=== PATIENT | female | born 1960 | race Caucasian/White ===

== ENCOUNTER 2021-04-17 10:50 | Emergency (ER) | payer BC, SELFPAY ==
[2021-04-17 11:02] VITALS: BP 136/55; PULSE 91; RESP 18; TEMP 36.6; O2SAT 99
--- NOTE | 2021-04-17 11:21 | ED.URI ---
HPI - URI/Sore Throat General Chief Complaint: Upper Respiratory Infection Stated Complaint: sorethroat,fever Time Seen by Provider: 04/17/21 11:24 Source: patient and RN notes reviewed Mode of arrival: ambulatory Limitations: no limitations History of Present Illness HPI Narrative: 61-year-old female presents to the [facility] with complaints of a sore throat and fever since yesterday. Has taken Sudafed and Tylenol which has helped with her symptoms. States her fever yesterday was 100.6 Patient states she started feeling unwell Saturday night. MD elicited complaint: fever and sore throat Related Data Home Medications Medication Instructions Recorded Confirmed hydrocortisone 5 mg PO DAILY 04/17/21 04/17/21 levothyroxine [Synthroid] 25 mcg PO DAILY 04/17/21 04/17/21 Allergies Allergy/AdvReac Type Severity Reaction Status Date / Time No Known Allergies Allergy Unknown Verified 04/17/21 11:34 Review of Systems Review of Systems: All systems reviewed & are unremarkable except as noted in HPI and below Constitutional: Constitutional: Reports as per HPI and Reports fever(s) (100.8) Eyes: Eyes: Reports no additional eye complaints ENT: Reports as per HPI, Reports nasal congestion and Reports sore throat Comments: Ear pressure, rhinorrhea Cardiovascular: Cardiovascular: Reports no additional cardiovascular complaints and Denies chest pain Respiratory: Respiratory: Reports no additional respiratory complaints, Denies cough, Denies dyspnea and Denies wheezing Gastrointestinal: Gastrointestinal: Reports no additional gastrointestinal complaints, Denies abdominal pain, Denies nausea and Denies vomiting Musculoskeletal: Musculoskeletal: Reports no additional musculoskeletal complaints Integumentary/Breasts: Skin/Breast: Reports system reviewed and no additional complaints, except as docu Neurologic: Reports system reviewed and no additional complaints, except as documented Psychiatric: Psychiatric: Reports no additional psychiatric complaints Allergic/Immunologic: Allergic/Immunologic: Reports no additional allergic/immunologic complaints [facility] Past Medical History Medical History (Updated 04/17/21 @ 18:23 by Nely Gallo) Thyroid disease Family History Family History Mother Family history of hypercholesterolemia Family history of cardiac disorder Father Family history of hypercholesterolemia Hypertension Family history of cardiovascular disease Family history of chronic obstructive pulmonary disease Other Family history of Parkinson's disease Social History Social History (Reviewed 04/17/21 @ 18:23 by Nely Sims Smoking status: Never smoker Alcohol intake: never Comments At the time of my signature, I reviewed and agree with the nursing past medical, surgical, social, and family history. There is no relevant family history pertinent to the patient complaint. Exam Const: General: healthy appearing, no acute distress and alert Nutritional Appearance: well nourished Orientation/consciousness: patient oriented x3 Limitations: no limitations HENMT: Head: normal to inspection Ears: external ears normal, TM's normal bilaterally and EAC's normal General nose exam: Normal nares present, Normal nasal mucous membranes and turbinates present and No nasal discharge present Throat: uvula midline and postnasal drainage Eyes: Conjunctivae: conjunctivae normal Pupils: Equal, round and reactive pupils present Neck: Neck: normal visual inspection, no lymphadenopathy and no meningeal signs Chest: Chest palpation & inspection: normal inspection of the chest Resp: Effort & Inspection: normal respiratory effort Auscultation: clear to auscultation bilaterally Cardio: Rate: regular rate Rhythm: regular rhythm Back/Spine/Pelvis: Back: no CVA tenderness Skin: General skin exam: normal color Rashes: no rashes Wounds: no wounds Neuro: Gen
== END 2021-04-17 11:49 | disposition home or self-care (01) ==
PROVIDERS: Emergency Provider Nurse Practitioner; PCP Family Medicine
DX: R09.82 Postnasal drip (principal); J06.9 Acute upper respiratory infection, unspecified; J02.9 Acute pharyngitis, unspecified; Z20.822 Contact with and (suspected) exposure to COVID-19; E03.9 Hypothyroidism, unspecified
CPT/HCPCS: 87081; 87804; 87880; 99213; G0463

== ENCOUNTER 2021-10-03 09:26 | Outpatient (CLI) | payer BC, SELFPAY ==
--- NOTE | ~2021-10-03 | MM_ITS ---
EXAMINATION: MM screening [facility] BI w el HISTORY: Screening mammogram TECHNIQUE: Craniocaudal and mediolateral oblique 3-D tomosynthesis images were obtained and synthetic 2-D images were generated. CAD analysis was submitted and interpreted. COMPARISON: 10/17/2018, 03/26/2017 BREAST PARENCHYMAL COMPOSITION: There are scattered areas of fibroglandular density. FINDINGS: There is no suspicious mass, calcification, or architectural distortion to suggest malignan cy in either breast. There has been no suspicious interval change. IMPRESSION: 1. No mammographic evidence of malignancy. 2. Recommend routine screening mammography in one year. BI-RADS Category 1: Negative Reviewed, dictated and finalized at location A.
== END 2021-10-03 09:27 | disposition home or self-care (01) ==
LOC: ANHIMG 09:29
PROVIDERS: PCP Family Medicine; Visit Provider Family Medicine
DX: Z12.31 Encounter for screening mammogram for malignant neoplasm of breast (principal)
CPT/HCPCS: 77063; 77067

== ENCOUNTER 2021-10-10 12:43 | Outpatient (CLI) | payer BC, SELFPAY ==
--- NOTE | ~2021-10-10 | DEXA_ITS ---
Bone Density Report Name: ELIZABETH FRIEDMAN Age: 61 Sex: Female Ethnicity: White Date of : 1960 Indication: postmenopausal; screening for osteoporosis; prior fracture; hysterectomy; Referring Provider: UNKNOWN, UNKNOWN Study: Bone densitometry was performed. Exam Date: October 10, 2021 Accession number: [id number] Bone Density: Region BMD T-score Z-score Classification AP Spine(L1-L4) 0.904 -1.3 0.2 Osteopenia Femoral Neck (Left) 0.715 -1.2 0.1 Osteopenia Total Hip (Left) 0.778 -1.3 -0.4 Osteopenia Femoral Neck (Right) 0.749 -0.9 0.4 Normal Total Hip (Right) 0.856 -0.7 0.3 Normal Total Hip Mean 0.817 -1.0 -0.1 Normal World Health Organization criteria for BMD impression classify patients as: Normal (T-score at or above -1.0), Osteopenia (T-score between -1.0 and -2.5), or Osteoporosis (T-score at or below -2.5). 10-year Fracture Risk(1): Major Osteoporotic Fracture 13% Hip Fracture 0.9% Reported Risk Factors: [place] (), Neck BMD=0.715, BMI=26.8, previous fracture (1) FRAX(R) Version 3.08. Fracture probability calculated for an untreated patient. Fracture probability may be lower if the patient has received treatment. Clinical Information Provided by Patient: Has had a low trauma fracture Has used the following medications: Calcium Has the following medical conditions: Hysterectomy Patient maximum height was 60 Menopause Age: 46 No regular weight bearing exercise Drinks caffeinated beverages Onset of menses at age 13 Number of children 4 Impression: The patient has low bone mass, based on the Total Spine T-score. The patient has an estimated ten-year risk of hip fracture of 0.9% and an estimated ten-year risk of major fracture of 13%, based on the WHO FRAX algorithm. The patient has risk factors, including: previous fracture. Discussion: BONE DENSITY IS LOW AT ONE OR MORE SKELETAL SITES. This patient's lowest T-score is low at one or more skeletal sites. It meets the World Health Organization's (WHO) criteria for ?low bone mass? (T-score between -1.0 and -2.5). The patient's 10-year risk of fracture as calculated by FRAX is less than the threshold where pharmacological therapy is recommended by the National Osteoporosis Foundation (NOF). However, all treatment decisions require clinical judgment and consideration of individual patient factors, including patient preferences, comorbidities, previous drug use, risk factors not captured in the FRAX model (e.g., frailty, falls, vitamin D deficiency, increased bone turnover, interval significant decline in bone density) and possible under or overestimation of fracture risk by FRAX. The patient should follow a healthful lifestyle (good nutrition with adequate calcium and vitamin D, and appropriate weight-bearing exercise).
== END 2021-10-10 12:44 | disposition home or self-care (01) ==
PROVIDERS: PCP Family Medicine
DX: E27.40 Unspecified adrenocortical insufficiency (principal); N95.0 Postmenopausal bleeding; Z78.0 Asymptomatic menopausal state; M85.88 Other specified disorders of bone density and structure, other site; M85.852 Other specified disorders of bone density and structure, left thigh
CPT/HCPCS: 77080

== ENCOUNTER 2021-12-14 10:42 | Outpatient (CLI) | payer BC, SELFPAY ==
--- NOTE | ~2021-12-14 | US_ITS ---
US thyroid INDICATION: Hypothyroidism. Thyroid goiter. TECHNIQUE: Real-time sonographic images of the thyroid gland were obtained. COMPARISON: No prior studies for comparison. FINDINGS: The right thyroid lobe measures 3 x 1 x 1.1 cm. The left thyroid lobe measures 3.2 x 1.4 x 1 cm. There is normal echotexture and echogenicity throughout the thyroid gland. There is a benign 5 mm cyst of the left thyroid gland.. Normal vascular flow is present. IMPRESSION: 1. Benign cyst of the left thyroid measuring 5 mm. Otherwise, unremarkable thyroid ultrasound. Reviewed, dictated and finalized at location B. IMPRESSION: 1. Benign cyst of the left thyroid measuring 5 mm. Otherwise, unremarkable thy roid ultrasound.
== END 2021-12-14 10:43 | disposition home or self-care (01) ==
PROVIDERS: PCP Hospitalist
DX: E03.9 Hypothyroidism, unspecified (principal); E04.1 Nontoxic single thyroid nodule
CPT/HCPCS: 76536

== ENCOUNTER 2023-08-23 10:15 | Emergency (ER) | payer BC, SELFPAY ==
[2023-08-23 10:34] VITALS: BP 136/63; PULSE 93; RESP 16; TEMP 36.6; O2SAT 99
--- NOTE | 2023-08-23 10:52 | ED.URI ---
HPI - URI/Sore Throat General Chief Complaint: Upper Respiratory Infection Stated Complaint: Sore Throat History of Present Illness HPI Narrative: 63 y/o female presented for c/o sore throat, onset 2 days. Endorses exposure to strep. Denies cough, sob, wheezing, n/v/d/f/c. Also reports right eye irritation, states it feels like she woke with something in the eye. Denies eye pain, drainage, swelling, photophobia, vision changes, or headache. Used eye drops but it returned. Related Data Home Medications Medication Instructions Recorded Confirmed hydrocortisone 5 mg tablet 5 mg PO DAILY 04/17/21 04/17/21 levothyroxine 25 mcg tablet 25 mcg PO DAILY 04/17/21 04/17/21 (Synthroid) liothyronine 5 mcg tablet mcg 08/23/23 Allergies Allergy/AdvReac Type Severity Reaction Status Date / Time No Known Allergies Allergy Unknown Verified 08/23/23 10:43 Review of Systems Review of Systems: CONSTITUTIONAL: Denies body aches, fever, chills, or sweats. EYES: Reports FB sensation right eye, Denies visual changes, redness, or discharge. ENT: reports sore throat Denies rhinorrhea, congestion, or otalgia. CARDIOVASCULAR: Denies chest pain, palpitations, or edema. RESPIRATORY: Denies dyspnea. GASTROINTESTINAL: Denies abdominal pain, nausea, vomiting, or diarrhea. SKIN: Denies rash, itching, or wounds. MUSCULOSKELETAL: Denies back pain, joint pain, or myalgia. [facility] Past Medical History Medical History Thyroid disease Family History Family History Mother Family history of hypercholesterolemia Family history of cardiac disorder Father Family history of hypercholesterolemia Hypertension Family history of cardiovascular disease Family history of chronic obstructive pulmonary disease Other Family history of Parkinson's disease Social History Social History Smoking status: Never smoker Alcohol intake: never Exam Narrative: GENERAL: well-appearing, no acute distress. EYES: conjunctivae clear, no FB, no drainage or swelling ENT: Mucous membranes moist. TMs pearly powell with normal light reflex bilaterally; no tragal tenderness. Oropharynx not erythematous without lesions. Tonsils not enlarged and without exudate. No drooling, no hoarseness, no trismus, uvula midline. No tripod positioning, hot potato voice, or soft palate swelling. NECK: Supple. No lymphadenopathy CHEST: Clear to auscultation, breath sounds equal. No respiratory distress, speaks in full sentences. HEART: Regular rate and rhythm. No murmur heard. SKIN: Warm, dry, no rash. NEURO: Alert and oriented x3. Course Course Emergency Course: Patient is aware of diagnosis, understands and agrees to treatment plan. Anticipatory guidance given. Patient agrees to follow-up as directed and is aware of reasons to seek care at the emergency department. Portions of this record may have been created with voice recognition software Level of Care: Express Care Visit Vital Signs Vital signs: Vital Signs Temperature 97.9 F 08/23/23 10:34 Pulse Rate 93 08/23/23 10:34 Respiratory Rate 16 08/23/23 10:34 Blood Pressure 136/63 08/23/23 10:34 Pulse Oximetry 99 08/23/23 10:34 Oxygen Delivery Room Air 08/23/23 10:34 Temperature 97.9 F 08/23/23 10:34 Pulse Rate 93 08/23/23 10:34 Respiratory Rate 16 08/23/23 10:34 Blood Pressure 136/63 08/23/23 10:34 Pulse Oximetry 99 08/23/23 10:34 Oxygen Delivery Room Air 08/23/23 10:34 Procedures FB Removal Eye Foreign Body #1: Foreign Body Removal Date: 08/23/23 Location: eye (R) Foreign body: other (none) Evidence of corneal penetration: No Technique: irrigation (eye wash, approx 20mL) Procedure performed under: other (direct visualization) Patient manuel
[2023-08-23] MEDS: DACRIOSE EYE IRRIGATION 118 ML BOTTLE RIGHT EYE (11:02)
== END 2023-08-23 11:13 | disposition home or self-care (01) ==
PROVIDERS: Emergency Provider Nurse Practitioner Family; PCP Hospitalist
DX: J02.9 Acute pharyngitis, unspecified (principal); H57.11 Ocular pain, right eye; E07.9 Disorder of thyroid, unspecified
CPT/HCPCS: 87081; 87880; 99213; A9270; G0463

== ENCOUNTER 2024-05-19 14:32 | Outpatient (CLI) | payer BC, SELFPAY ==
--- NOTE | ~2024-05-19 | MM_ITS ---
EXAMINATION: MM screening [facility] BI w el HISTORY: Screening TECHNIQUE: Craniocaudal and mediolateral oblique 3-D tomosynthesis images were obtained and synthetic 2-D images were generated. CAD analysis was submitted and interpreted. COMPARISON: Comparison to multiple prior studies sequentially, with oldest reviewed study dated 11/18. BREAST PARENCHYMAL COMPOSITION: Not dense: There are scattered areas of fibroglandular density. FINDINGS: There is no evidence of suspicious mass, calcification, or architectural distortion to sugg est malignancy in either breast. There has been no suspicious interval change. IMPRESSION: 1. No mammographic evidence of malignancy. 2. Recommend routine screening mammography in one year. BI-RADS Category 1: Negative Reviewed, dictated and finalized at location A. 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
--- NOTE | ~2024-05-19 | DEXA_ITS ---
Bone Density Report Name: ELIZABETH FRIEDMAN Age: 64 Sex: Female Ethnicity: White Date of : 1960 Indication: osteopenia; history of glucocorticoids; hysterectomy; Referring Provider: UNKNOWN, UNKNOWN Study: Bone densitometry was performed. Exam Date: May 19, 2024 Accession number: [id number] Bone Density: Region BMD T-score Z-score Classification AP Spine(L1-L4) 0.888 -1.4 0.2 Osteopenia Femoral Neck (Left) 0.686 -1.5 0.0 Osteopenia Total Hip (Left) 0.826 -1.0 0.2 Normal Femoral Neck (Right) 0.708 -1.3 0.2 Osteopenia Total Hip (Right) 0.814 -1.1 0.1 Osteopenia Total Hip Mean 0.820 -1.1 0.2 Osteopenia World Health Organization criteria for BMD impression classify patients as: Normal (T-score at or above -1.0), Osteopenia (T-score between -1.0 and -2.5), or Osteoporosis (T-score at or below -2.5). 10-year Fracture Risk(1): Major Osteoporotic Fracture 13% Hip Fracture 1.4% Reported Risk Factors: [place] (), Neck BMD=0.686, BMI=25.2, glucocorticoids (1) FRAX(R) Version 3.08. Fracture probability calculated for an untreated patient. Fracture probability may be lower if the patient has received treatment. Previous Exams: Region Exam Age BMD T-score BMD Change BMD Change Date g/cm2 vs Baseline vs Previous AP Spine (L1-L4) 05/19/2024 64 0.888 -1.4 -0.098 (-10.0% -0.016 (-1.8%) 10/10/2021 61 0.904 -1.3 -0.082 (-8.3%) -0.082 (-8.3%) 03/26/2017 57 0.987 -0.5 Total Hip(Left) 05/19/2024 64 0.826 -1.0 -0.024 (-2.8%) 0.047 (6.1%)# 10/10/2021 61 0.778 -1.3 -0.071 (-8.4%) -0.071 (-8.4%) 03/26/2017 57 0.849 -0.8 Total Hip(Right) 05/19/2024 64 0.814 -1.1 -0.077 (-8.6%) -0.042 (-5.0%) 10/10/2021 61 0.856 -0.7 -0.034 (-3.9%) -0.034 (-3.9%) 03/26/2017 57 0.890 -0.4 *Denotes significance at 95% confidence level, LSC for AP Spine = 0.022 g/cm2, LSC for Total Hip = 0.027 g/cm2 # Denotes dissimilar scan types or analysis methods Clinical Information Provided by Patient: Has taken Glucocorticoids Has used the following medications: Vitamin D, Calcium Has the following medical conditions: Hysterectomy Patient maximum height was 61 Menopause Age: 46 No regular weight bearing exercise Drinks caffeinated beverages Onset of menses at age 13 Number of children 4 Impression: The patient has low bone mass, based on the Left Femoral Neck T-score. The patient has an estimated ten-year risk of hip fracture of 1.4% and an estimated ten-year risk of major fracture of 13%, based on the WHO FRAX algorithm. The patient has risk factors, including: history of glucocorticoid therapy. No significant bone loss was observed. Discussion: BONE DENSITY IS LOW AT ONE OR MORE SKELETAL SITES. This patient's lowest T-score is low at one or more skeletal sites. It meets the World Health Organization's (WHO) criteria for ?low bone mass? (T-score between -1.0 and -2.5). The patient's 10-year risk of fracture as calculated by FRAX is less than the threshold where pharmacological therapy is recommended by the National Osteoporosis Foundation (NOF). However, all treatment decisions require clinical judgment and consideration of individual patient factors, including patient preferences, comorbidities, previous drug use, risk factors not captured in the FRAX model (e.g., frailty, falls, vitamin D deficiency, increased bone turnover, interval significant decline in bone density) and possible under or overestimation of fracture risk by FRAX. The patient should follow a healthful lifestyle (good nutrition with adequate calcium and vitamin D, and appropriate weight-bearing exercise). Follow-Up: Consider repeating this study in 2 to 3 years to reassess this patient's status, or sooner if there is some new clinical indication. Reported by: CASSIDY on 05/19/2024 3:28:00 PM. Reviewed, dictated and finalized at location ASerg [facility]ITAL[facility]
== END 2024-05-19 14:33 | disposition home or self-care (01) ==
PROVIDERS: PCP Family Medicine Sports Medicine
DX: Z12.31 Encounter for screening mammogram for malignant neoplasm of breast (principal); Z78.0 Asymptomatic menopausal state; M85.88 Other specified disorders of bone density and structure, other site; M85.852 Other specified disorders of bone density and structure, left thigh; M85.851 Other specified disorders of bone density and structure, right thigh
CPT/HCPCS: 77063; 77067; 77080

== ENCOUNTER 2024-06-12 10:18 | Emergency (ER) | payer BC, SELFPAY ==
--- NOTE | ~2024-06-12 | XR_ITS ---
EXAMINATION: XR hip RT min 2V, XR femur RT min 2V, XR tibia fibula RT 2V DATE: 06/12/2024 11:22 INDICATION: Right lower limb pain from the hip through the calf post fall TECHNIQUE: 1. Anteroposterior and frog-leg lateral views of the right hip were obtained. 2. AP and lateral views of the right femur were obtained on overlapping proximal and distal images. 3. AP and lateral views of the right tibia and fibula were obtained. COMPARISON: None. FINDINGS: Bone alignment is normal from the right hemipelvis through the right lower leg. No fracture. Right hi p and ankle joint spaces appears relatively preserved. Mild osteoarthritis at the right sacroiliac talita int. Mild osteoarthritis of the medial compartment of the right knee with subarticular cystlike vora e underlying the shoulder the intercondylar eminence. Additional patellofemoral osteoarthritis with s mall marginal osteophyte the cephalad patella. Small amount of likely enthesopathic heterotopic ossif ication along the greater trochanter. Soft tissues are unremarkable with no right knee or ankle joint effusion. IMPRESSION: 1. Mild degenerative skeletal changes with no acute osseous abnormality at the visualized right leg a nd hemipelvis. Reviewed, dictated and finalized at location A. N CLEANER IMPRESSION: 1. Mild degenerative skeletal changes with no acute osseous abnormality at the visualized right leg and hemipelvis. IMPRESSION: 1. Mild degenerative skeletal changes with no acute osseous abnormality at the visualized right leg and hemipelvis.
--- NOTE | 2024-06-12 10:19 | ED.LOWEXIN ---
HPI - Extremity Injury (Lower) General Chief Complaint: Extremity Injury, Lower Stated Complaint: RT Hip / Leg Pain Time Seen by Provider: 06/12/24 10:19 Source: patient Mode of arrival: ambulatory Limitations: no limitations History of Present Illness HPI Narrative: Marsha is a 64-year-old female patient presenting to the clinic today with complaints of right hip/leg pain x2 days. She reports she started having sciatica like pain to the posterior hip radiating across the lateral hip and down the anterior left leg. Reports she was bending forward over the past few days near her fathers bedside as her father on Saturday. States her low right leg gave out on her and she fell landing on the posterior hip on Saturday. Has a bruise to the posterior hip. States she has been taking ibuprofen and Tylenol without relief of pain. Pain is worse with movement, standing straight up, and bearing weight. Related Data Home Medications ?Medication ?Instructions ?Recorded ?Confirmed ?Last Taken ?Type hydrocortisone 5 mg tablet 5 mg PO DAILY 04/17/21 04/17/21 Unknown History levothyroxine 25 mcg tablet 25 mcg PO DAILY 04/17/21 04/17/21 Unknown History (Synthroid) liothyronine 5 mcg tablet mcg 08/23/23 Unknown History Allergies Allergy/AdvReac Type Severity Reaction Status Date / Time No Known Allergies Allergy Unknown Verified 06/12/24 10:45 Review of Systems Review of Systems: Pertinent positives per HPI. Patient denies any fever, chills, rash, headache, visual changes, dizziness, cough, shortness of breath, chest pain, palpitations, nausea, vomiting, diarrhea, constipation, abdominal pain, or any urinary issues. [facility] Past Medical History Medical History Thyroid disease Family History Family History Mother Family history of hypercholesterolemia Family history of cardiac disorder Father Family history of hypercholesterolemia Hypertension Family history of cardiovascular disease Family history of chronic obstructive pulmonary disease Other Family history of Parkinson's disease Social History Social History Smoking status: Never smoker Alcohol intake: never Comments At the time of my signature, I reviewed and agree with the nursing past medical, surgical, social, and family history. There is no relevant family history pertinent to the patient complaint. Exam Narrative: General: Well-developed, well nourished, in no apparent distress Head: Normocephalic, atraumatic. Cardio: Regular rate and rhythm, s1 and s2 normal, no murmur appreciated. Resp: Clear to auscultation bilaterally, no rhonchi, rales, wheezing or rubs. Musculoskeletal: No deformity, old bruising noted to the right posterior hip area the size approximately of a baseball,tender to palpation over the posterior hip, anterior proximal thigh, an anterior proximal tib-fib, grossly normal range of motion, muscle strength strong and equal, peripheral pulse strong, no edema, no cyanosis, walking with a wheeled walker Course Course Emergency Course: Portions of this record may have been created with voice recognition software. Level of Care: Express Care Visit Vital Signs Vital signs: Vital Signs Temperature 36.6 C 06/12/24 10:36 Pulse Rate 99 06/12/24 10:36 Respiratory Rate 16 06/12/24 10:36 Blood Pressure 146/63 H 06/12/24 10:36 Pulse Oximetry 06/12/24 10:36 Oxygen Delivery Room Air 06/12/24 10:36 Temperature 36.6 C 06/12/24 10:36 Pulse Rate 99 06/12/24 10:36 Respiratory Rate 16 06/12/24 10:36 Blood Pressure 146/63 H 06/12/24 10:36 Pulse Oximetry 99 06/12/24 10:36 Oxygen Delivery Room Air 06/12/24 10:36 Vital signs reviewed MDM - Extremity Injury (Lower) MDM Narrative Medical decision making narrative: At the time of visit patient is resting comfortably on the exam table. Patient appears to be nontoxic. Diagnostics: X-ray of the right hip, right femur, and right tib-fib performed. All x-rays are negative for any fracture or malalignment. Does show some mild degenerative changes. Plan: I suspect patient has right posterior hip pain with sciatica. Prescription for Medrol Dosepak and tramadol was sent to the pharmacy. Supportive measures were discussed with the patient and they voiced understanding discharge instructions and agrees to treatment plan. Return precautions reviewed Differential Diagnosis Differential diagnosis: Likely other (Sciatica, low back pain, hip pain, SI joint dysfunction, fall, contusion, hip fracture, femur fracture, tibia fracture) Imaging Data Radiologist's impression: ITS Impressions Femur X-Ray 06/12/24 11:36 IMPRESSION: 1. Mild degenerative skeletal changes with no acute osseous abnormality at the visualized right leg and hemipelvis. Hip X-Ray 06/12/24 11:36 IMPRESSION: 1. Mild degenerative skeletal changes with no acute osseous abnormality at the visualized right leg and hemipelvis. Tibia/Fibula X-Ray 06/12/24 11:36 IMPRESSION: 1. Mild degenerative skeletal changes with no acute osseous abnormality at the visualized right leg and hemipelvis. Discharge Plan Discharge Clinical Impression: Posterior pain of right hip, Pain in femur Acute leg pain Qualifiers: Laterality: right Qualified Code(s): M79.604 - Pain in right leg Sciatica Qualifiers: Laterality: right Qualified Code(s): M54.31 - Sciatica, right side Contusion of hip Qualifiers: Encounter type: initial encounter Laterality: right Qualified Code(s): S70.01XA - Contusion of right hip, initial encounter Patient Disposition: Home, Self-Care Condition: Stable Instructions: Antibiotic Form, Sciatica (ED), Contusion in Adults (ED), Hip Pain (ED), Leg Pain (ED) Additional Instructions: X-rays negative for any fracture or malalignment. Shows mild degenerative skeletal changes with no acute osseous abnormality Take any prescription medication only as prescribed-Medrol Dosepak and tramadol May use heat or ice to the affected area Consider massage or chiropractor adjustment if this was discussed with provider May use blue emu, lidocaine patches, or asper cream to affected area- do not apply heat or ice directly over cream- can cause burn. Follow up with your PCP in 3-5 days if symptom persist. Patient Language: Belarusian Prescriptions: New tramadol 50 mg tablet 50 mg PO Q6H PRN (Reason: pain) 3 Days Qty: 12 0RF methylprednisolone [Medrol (Eric)] 4 mg tablets,dose pack See Rx Instructions PO .COMPLEX Qty: 21 0RF Rx Instructions: orally per package directions No Action liothyronine 5 mcg tablet hydrocortisone 5 mg tablet 5 mg PO DAILY levothyroxine [Synthroid] 25 mcg tablet 25 mcg PO DAILY Follow-up/Referrals: UNKNOWN,DOCTOR [Non-Staff] - Time of Disposition: 11:50 [facility] NIHSS nursing documentation: reviewed/agree
--- OUTSIDE RECORDS SUMMARY | 2024-06-12 10:29 | XMS_ITS | Referral Summary ---
Author Organization [address] Address [address] [place] [address] Care Team Providers Care Learning Coach Name Role Phone Jammie Campos MD Primary Care Provider Erin Ovalles MD Unavailable [phone] Encounters Date Type Department Care Team Description 05/08/2024 Telephone [facility] of [address] [address] Ilia Contreras MD 03/23/[address] [facility] Diabetes and Endocrinology [address] [place] [phone] Ilia Contreras MD 03/23/2024 8:30 AM SENIOR NET SOFTWARE ENGINEER Office Visit [facility] Diabetes and Endocrinology [address] [place] [phone] Ilia Contreras MD Adrenal insufficiency (HCC) (Primary Dx); Acquired hypothyroidism; IGT (impaired glucose tolerance); Vitamin D deficiency from Last 3 Months Allergies No known active allergies Medications estradioL (Estrace) 0.01 % (0.1 mg/gram) vaginal creamIndications:A trophic vaginitis Insert 2 g into the vagina daily For 1-2 weeks, then try to gradually decrease to 2-3x/week 42.5 g 3 09/20/19 Active Additional Information Patient not taking.Reported on 03/23/2024 Synthroid 88 mcg tabletIndications: Acquired hypothyroidism Take 1 tablet (88 mcg total) by mouth daily 90 tablet 3 03/23/20 025 Active miscellaneous medical [place] [facility] [place]ronine slow release oral 11 mcg daily in am and 7.5 mcg daily at 12 pm Active hydrocortisone (CORTEF) 5 mg tabletIndications: Adrenal insufficiency (HCC) Take 8 tablets (40 mg total) by mouth daily 720 tablet 3 05/08/19 026 Active Active Problems Problem Noted Date Diagnosed Date Adrenal insufficiency 09/20/2023 Assessment & Plan (03/23/2024 9:15 AM SENIOR NET SOFTWARE ENGINEER): Chronic, stable Patient hemodynamically stable Patient asymptomatic Check electrolyte panel Continue current dose of hydrocortisone ( patient takes a total of 30 mg daily ) Patient understands sick day rules Wears medical alert bracelet Assessment & Plan (09/20/2023 1:36 PM CDT): Chronic. Remains on hydrocortisone. She is aware about use of stress dose steroids. No signs of decompensation. She will continue hydrocortisone at current dose. She wishes to transition to [facility] Endocrinology so new referral was provided IGT (impaired glucose tolerance) 09/20/2023 Assessment & Plan (03/23/2024 9:15 AM SENIOR NET SOFTWARE ENGINEER): Check hemoglobin A1c Assessment & Plan (09/20/2023 1:37 PM CDT): Noted previously. Her fructosamine levels have been monitored by Endocrinology. She has not currently on any treatment. Encouraged healthy diet and lifestyle Atrophic vaginitis 09/20/2023 Assessment & Plan (09/20/2023 1:37 PM CDT): Chronic. Uses estradiol vaginal cream. Discussed appropriate use. Can be used daily for 1-2 weeks but then should gradually try to wean to once or twice week for maintenance long-term. Paresthesia 09/20/2023 Assessment & Plan (09/20/2023 1:37 PM CDT): Patient with very mild paresthesias at times in bilateral hands and feet. Somewhat nonspecific. Could have very mild component of carpal tunnel syndrome based on modified Phalen's. Her recent thyroid levels were acceptable. Her recent B12 and folate were also normal. We will monitor symptoms. If it continues to worsen then I would consider getting nerve conduction study test to further evaluate. Ganglion of right wrist 09/20/2023 Assessment & Plan (09/20/2023 1:38 PM CDT): Discussed diagnosis. As relatively asymptomatic we will just monitor for now. If struggles we can always attempt to aspirate but has high recurrence rate. Struggles long-term then can refer to orthopedic surgery for surgical consultation Annual physical exam 11/23/2021 Assessment & Plan (11/23/2021 12:51 PM CDT): Never smoker PAP: s/p hysterectomy Mammo UTD Colonoscopy UTD BP wnl PHQ Screening PHQ-2 Total Score (If total score is 3 or more points, staff should administer the PHQ-9): 0 Body mass index is 27.17 kg/m . Discussed diet and exercise Discussed skin cancer prevention and screening: referral to lay out machine operator Check labs Vaccinations UTD Acquired hypothyroidism 12/20/2015 Overview (08/02/2016): Hypothyroidism (acquired) Assessment & Plan (03/23/2024 9:14 AM SENIOR NET SOFTWARE ENGINEER): Chronic, unknown status Patient currently on Synthroid 88 mcg oral daily and slow-release liothyronine 11 mcg in a.m. and 7.5 mcg at noon Continue current thyroid medication Recheck thyroid labs soon Assessment & Plan (09/20/2023 1:35 PM CDT): Chronic. Was biochemically euthyroid on recent thyroid labs. She will continue on Synthroid and Cytomel. We did discuss that if thyroid levels are at arrange it could increase the risk of some nerve irritation symptoms Chronic fatigue syndrome 12/20/2015 Overview (08/02/2016): Chronic fatigue Thyroid nodule 12/20/2015 Overview (08/02/2016): Right thyroid nodule Resolved Problems Problem Noted Date Diagnosed Date Resolved Date Closed fracture of base of f ifth metatarsal bone of left foot at metaphyseal-diaphyseal junction 11/08/2016 09/20/2023 Closed fracture of distal en d of left fibula with delayed healing 11/08/2016 09/20/2023 Fracture follow-up 11/08/2016 4 Closed left fibular fracture 10/16/2016 09/20/2023 Closed nondisplaced fracture of fifth metatarsal bone of left foot 10/16/2016 09/20/2023 Immunizations Name Administration Dates Next Due Influenza, Quadrivalent, Kaylyn l Culture-based MDCK, Preservative Free, Antibiotic Free, Intramuscular 05/26/2023,02/27/2022,01/19/2017 Influenza, Quadrivalent, Spl it, Preservative Free, Intramuscular 02/28/2021,02/01/2020,02/13/2019,02/05 Influenza, Trivalent, IM (MDV) 04/01/2014 MMR 02/13/2019 Pneumococcal Polysaccharide PPV23 02/01/2020 RSV, Bivalent, Protein Subun it Rsvpref, Diluent (Abrysvo) 05/26/2023 Tdap 01/19/2017 ZOSTER Recombinant 10/19/2018,06/15/2018 Social History Tobacco Use Types Packs/Day Years Used Date Smoking Tobacco: Never Cigarettes Smokeless Tobacco: Never Tobacco Cessation:Counseling Given: Not Answered Alcohol Use Standard Drinks/Week Comments No 0 (1 standard drink = 0.6 oz pur e alcohol) AUDIT-C Answer Date Recorded Q1: How often do you have a drink containing alcohol? Never 09/20/2023 Q2: How many drinks containi ng alcohol do you have on a typical day when you are drinking? Patient does not drink Q3: How often do you have si x or more drinks on one occasion? Never 09/20/2023 PHQ-2 Answer Date Recorded PHQ-2 Total Score (If total score is 3 or more points, staff should administer the PHQ-9) 0 09/20/2023 Comments No Sex and Gender Information Value Date Recorded Sex Assigned at Not on file Legal Sex Female 5:59 AM SENIOR NET SOFTWARE ENGINEER Gender Identity Not on file Sexual Orientation Not on file Last Filed Vital Signs Vital Sign Reading Time Taken Comments Blood Pressure 122/82 03/23/2024 8:30 AM SENIOR NET SOFTWARE ENGINEER Pulse 90 03/23/2024 8:30 AM SENIOR NET SOFTWARE ENGINEER Temperature 36.9 C (98.4 F) 07/12/2022 1:06 PM CDT Respiratory Rate 18 09/20/2023 10:31 AM CDT Oxygen Saturation 96% 07/12/2022 1:06 PM CDT Inhaled Oxygen Concentration - - Weight 59 kg (130 lb) 03/23/2024 8:30 AM SENIOR NET SOFTWARE ENGINEER Height 152.4 cm (5') 03/23/2024 8:30 AM SENIOR NET SOFTWARE ENGINEER Body Mass Index 25.39 03/23/2024 8:30 AM SENIOR NET SOFTWARE ENGINEER Plan of Treatment Not on file Procedures Procedure Name Priority Date/Time Associated Diagnosis Comments HEPATITIS C ANTIBODY Routine 01/11/2022 7:29 AM CDT Encounter for hepatitis C screening test for low risk patient COLONOSCOPY REPORT 02/04/2014 from Last 3 Months or Most Recently Relevant to Health Maintenance Results * Hepatitis C antibody (01/11/2022 7:29 AM CDT) Hep C Ab NON-REACTI VE NON-REACT LYNNETTE [facility] SIGNAL TO CUT-OFF 0.00 <1.00 [facility] Comment: HCV antibody was non-reactive. There is no laboratory evidence of HCV infection. In most cases, no further action is required. However, if recent HCV exposure is suspected, a test for HCV RNA (test code 59524) is suggested. For additional information please refer to http://education.Amura.Extreme Pl[employer] Plus/faq/GXP74h6 (This link is being provided for informational/ educational purposes only.) Blood specimen (specimen) 01/11/2022 7:29 AM CDT 01/11/2022 7:29 AM CDT Narrative [facility] - 01/12/2022 9:29 AM CDT FASTING:YES FASTING: YES Janie Mackenzie MD LAB MICROBIOLOGY - GENERAL ORDERABLES Final Result [facility] [id number] [facility] [place] [address] * COLONOSCOPY REPORT (02/04/2014) Anatomical Region Laterality Modality Other Narrative 02/04/2014 Ordered by an unspecified provider. us Historical Provider GI PROCEDURE ORDERABLES F inal Result from Last 3 Months or Most Recently Relevant to Health Maintenance Insurance [facility] BL CHOICE PRF PPO [place] [facility] Care Teams Learning Coach Relationship Specialty Start Date End Date Jammie Campos MD PCP - General Family Medicine 09/20/23 [place] [address] [place] [address] Referring Physician Endocrinology Diabetes & Metabolism 09/20/23
--- OUTSIDE RECORDS SUMMARY | 2024-06-12 10:30 | XMS_ITS | Continuity of Care Document ---
Author Organization [facility] Address [address] [place] [address] Phone Care Team Providers Care Underground Distribution Engineer Name Role Phone Clarissa Johnson MD Unavailable Unavailabl e Allergies, Adverse Reactions, Alerts Substance Reaction Status Criticality prednisone Active No Information Medications Medication Instructions Dosage Effective Dates (start - stop) Status Comments ESTRACE 0.01% CREAM INSERT 1 APPLICATORFUL THREE TIMES WEEKLY 1 G - Active aspirin 81 mg tablet,delayed release take 1 tablet by mouth 4 times a week - Active Synthroid 100 mcg tablet take 1 tablet by oral route every day 100 MCG - Active Multiple Vitamins tablet take 1 tablet by oral route every day with food - Active Vitamin D3 5,000 unit tablet take 1 tablet by mouth once daily - Active Fish Oil Concentrate 1,000 mg capsule take 1 by Oral route every day 1 - Active Co Q-10 100 mg capsule take 1 capsule by mouth once daily - Active Estrace 0.01% (0.1 mg/gram) vaginal cream insert (1G) by vaginal route 2 times every week 1 G - No Longer Active Advance Directives Directive Yes / No Effective Date File Name No Information Encounters Encounter Description Practice Location Reason(s) For Visit Diagnoses Date Provider Providers Copied on Encounter [facility], [address], [place], [place], [id number] , tel: [phone] Jaida No Information 6 [address] [place], [place], [id number]. tel:[phone] [facility], [address], [place], [place], [address] , tel: [phone] Jaida No Information 6 Alex Cintron[address] [place], [place], [id number]. tel:[phone] [facility], [address], [place], [place], [id number] , tel: [phone] [place] Encounter for preventive health examinationHypothyro idism, unspecifiedChronic fatigue, unspecifiedEncounter for immunization 6 Alex Cintronh. [address] [place], [place], [id number]. tel:[phone] Referring Provider: Clarissa Johnson, [address] [place], [address] . tel:[phone] Family History Family Member Type Diagnosis Age At Onset Father Problem (finding) hypertension Father Problem (finding) Hearing deficiency Mother Problem (finding) Mother Problem (finding) Cardiac pacemaker Sister Problem (finding) Allergies Sister Problem (finding) depression Father Problem (finding) raised blood lipids Father Problem (finding) prostate cancer Mother Problem (finding) Allergies Father Problem (finding) coronary arterioscleros is Mother Problem (finding) raised blood lipids Mother Problem (finding) Hearing deficiency Daughter Problem (finding) Son Problem (finding) Mother Problem (finding) osteoarthritis Immunizations Vaccine Date Status Comments Influenza, injectable, quadrivalent, preservative free, 3 yrs or older administered Source: New Immuniz ation Record Influenza, injectable, quadrivalent, preservative free, 3 yrs or older administered Source: Source Unsp ecified Td (adult) preservative free administered Source: Source Unspecified Payers Payer name Insurance type Covered republican ID Authoriza tion(s) [facility] CI [id number] [facility] CI [id number] Social History Type Description Quantity Date Captured Comments Sex Female Smoking Status No Information Chief Complaint And Reason For Visit No Information Reason For Referral Reason For Referral No Information History Of Present Illness Encounter Date Complaint History Of Prese nt Illness No Information Functional Status Date Functional Assessmen t No Information Instructions Date Instruction Additional Infor mation No Information Assessments Type Assessment Date No Information Patient Care Teams Name Effective Dates (start - stop) Status Members No Information
--- OUTSIDE RECORDS SUMMARY | 2024-06-12 10:30 | XMS_ITS | Referral Summary ---
Author Organization [facility] Address [address] [facility] [place] [address] Care Team Providers Care Technical Product Manager Name Role Phone Janie Mackenzie MD Primary Care Pro vider Source Comments [facility],non-owned Affiliates and Associated Physician Practices is amultiple site organization consisting of ambulatory clinics and hospital sitesin [place], [place], [place] and [place]. This disclosure is being madepursuant to the Care Everywhere program and may not contain all information available regarding this patient. Last updated 18.[facility] Encounters Date Type Department Care Team Description 05/20/2024 Orders Only [facility] - Endocrinology [address] [place] [address], [address] [address] Erin Ovalles MD Post-menopausal from Last 3 Months Allergies No known active allergies Medications * Be aware that medications may not be up to date on this document. Alwaysverify current medications with the patient. Medication Sig Dispensed Refills Start Date End Date Status Other Take 11 mcg by mouth daily before breakfast Compound:Liothyroni ne SR: 11mcg in AM in addition to 7.5mcg in PM 90 Each 2 01/01/2023 Active Other Take 7.5 mcg by mouth daily before dinner Liothyronine Slow release compounded 7.5mcg in PM 90 Each 3 01/01/2023 Active [place] & Syringes MIS Use 1 Each as needed 25 gauge 1 in needle for change after drawn medication, for delivery of Cortef 100 Each 3 05/10/2023 Active estradiol (Estrace) 0.1 MG/GM vaginal cream Insert 1 g into the vagina once daily 42.5 g 1 07/16/2023 Active Synthroid 75 MCG tabletIndications: Hypothyroidism, acquired TAKE 1 TABLET BY MOUTH EVERY DAY BEFORE BREAKFAST 90 tablet 2 07/22/2023 Active hydrocortisone (Cortef) 5 MG tablet TAKE 3 (THREE) TABLETS BY MOUTH 2 TIMES DAILY 540 tablet 2 07/22/2023 Active Syringe/Needle, Disp, (SYRINGE 3CC/25GX1 ) 25G X 1 3 ML MISC Use 1 Each as needed 100 Each 12/31/2023 Active hydrocortisone sodium succinate PF (Solu-CORTEF) injection 100 (one hundred) mg by Intravenous route every 6 hours In case of an emergency inject once every 6 to 8 hours: Go to the emergency room if requiring injection 2 Each 2 12/31/2023 Active liothyronine (Cytomel) 5 MCG tablet 5 MG IN THE MORNING BETWEEN 7 AND 9:00 A.M. AND 5 MG IN THE AFTERNOON EVENING BETWEEN 2 AND 3 P.M. THIS REPLACES CONFOUNDED LIOTHYRONINE 180 tablet 1 01/13/2024 Active Active Problems No known active problems Social History Tobacco Use Types Packs/Day Years Used Date Smoking Tobacco: Never Smokeless Tobacco: Never Tobacco Cessation:Counseling Given: Not Answered Alcohol Use Standard Drinks/Week Comments Not Currently 0 (1 standard drink = 0.6 oz pur e alcohol) Sex and Gender Information Value Date Recorded Sex Assigned at Female 07/24/2021 1:30 PM CDT Gender Identity Female 07/24/2021 1:30 PM CDT Sexual Orientation Not on file Last Filed Vital Signs Vital Sign Reading Time Taken Comments Blood Pressure 150/72 07/16/2023 1:18 PM CDT Pulse 77 07/16/2023 1:18 PM CDT Temperature 36.2 C (97.1 F) 07/27/2021 10:37 AM CDT Respiratory Rate 20 12/30/2020 11:1 1 AM CDT Oxygen Saturation 99% 07/16/2023 1:1 8 PM CDT Inhaled Oxygen Concentration - - Weight 58.5 kg (129 lb) 07/16/2023 1:18 PM CDT Height 152.4 cm (5') 07/16/2023 1:18 PM CDT Patient stated Body Mass Index 25.19 07/16/2023 1:18 PM CDT Plan of Treatment Not on file Procedures Procedure Name Priority Date/Time Associated Diagnosis Comments DEXA BONE DENSITY AXIAL SKELETON Routine 05/19/2024 Post-menopausal MAMMOGRAM 05/19/2024 COMPREHENSIVE METABOLIC PANEL 08/19/2023 7:15 AM CDT LIPID PROFILE 09/18/2022 7:47 AM CDT from Last 3 Months or Most Recently Relevant to Health Maintenance Results * MAMMOGRAM (05/19/2024) Anatomical Region Laterality Modality Other 05/19/2024 Narrative 05/19/2024 Ordered by an unspecified provider. Scanned Document SCANNING ONLY * DEXA BONE DENSITY AXIAL SKELETON (05/19/2024) Anatomical Region Laterality Modality Other 05/19/2024 Erin Ovalles MD DEXA ORDERABLES * COMPREHENSIVE METABOLIC PANEL (08/19/2023 7:15 AM CDT) Pathologist [facility] Glucose 85 65 - 99 mg/dL [facility] Comment: Fasting reference interval BUN 17 7 - 25 mg/dL [facility] Creatinine 0.74 0.50 - 1.05 mg/dL [facility] eGFR by Cystatin C 91 > OR = 60 mL/min/1. 73m2 [facility] BUN/Creatinine Ratio SEE NOTE: 6 (calc) [facility] Comment: Not Reported: BUN and Creatinine are within reference range. Sodium 142 135 - 146 mmol/L [facility] Potassium 3.9 3.5 - 5.3 mmol/L [facility] Chloride 106 98 - 110 mmol/L [facility] CO2 28 20 - 32 mmol/L [facility] Calcium 9.4 8.6 - 10.4 mg/dL [facility] Protein Total 6.4 6.1 - 8.1 g/dL [facility] Albumin 4.1 3.6 - 5.1 g/dL [facility] Globulin Total 2.3 1.9 - 3.7 g/dL (calc) [facility] Albumin/Globulin Ratio 1.8 1.0 - 2.5 (calc) [facility] Bilirubin Total 0.3 0.2 - 1.2 mg/dL [facility] Alkaline Phosphatase 87 37 - 153 U/L [facility] AST 23 10 - 35 U/L [facility] ALT 23 6 - 29 U/L [facility] Comment: Test Performed at: [facility] [address] [facility] [place] [address] MICKI STEVENSON MD 08/19/2023 7:15 AM CDT 08/19/2023 7:17 AM CDT Erin Ovalles MD LAB - CHEMISTRY ORDERABLES [facility] [id number] [place] [address] * (ABNORMAL) LIPID PROFILE (09/18/2022 7:47 AM CDT) Cholesterol 189 <200 mg/dL [facility] HDL Cholesterol 60 > OR = 50 mg/dL [facility] Triglycerides 221(H) <150 mg/dL [facility] Comment: If a non-fasting specimen was collected, consider repeat triglyceride testing on a fasting specimen if clinically indicated. Marlen et al. J. of Clin. Lipidol. 2015;9:129-169. LDL Calculated 98 mg/dL (calc) [facility] Comment: Reference range: <100 Desirable range <100 mg/dL for primary prevention; <70 mg/dL for patients with CHD or diabetic patients with > or = 2 CHD risk factors. LDL-C is now calculated using the Aashish-Hilaria calculation, which is a validated novel method providing better accuracy than the Friedewald equation in the estimation of LDL-C. Aashish MUNSON et al. ROSSY. 2013;310(19): 7166-4909 (http://education.TravelSite.com.FastScaleTechnology/faq/PNS335) CHOL/HDLC RATIO 3.2 <5.0 (calc) [facility] Non HDL Cholesterol 129 <130 mg/dL (calc) [facility] Comment: For patients with diabetes plus 1 major ASCVD risk factor, treating to a non-HDL-C goal of <100 mg/dL (LDL-C of <70 mg/dL) is considered a therapeutic option. Test Performed at: [facility] [address] [facility] [place] [address] MICKI STEVENSON MD 09/18/2022 7:47 AM CDT 09/18/2022 7:47 AM CDT Erin Ovalles MD LAB - CHEMISTRY ORDERABLES [facility] [id number] [place] [address] from Last 3 Months or Most Recently Relevant to Health Maintenance Care Teams Technical Product Manager Relationship Specialty Start Date End Date Janie Mackenzie MD [address] [place] [id number] PCP - General Family Medicine 01/24/22
--- OUTSIDE RECORDS SUMMARY | 2024-06-12 10:30 | XMS_ITS | Patient Health Summary ---
Author Organization [facility] Address [address] [place] [address] Care Team Providers Care Production Team Manager Name Role Phone Janie Mackenzie MD Primary Care Pro vider Note from [facility],non-owned Affiliates and Associated Physician Practices is amultiple site organization consisting of ambulatory clinics and hospital sitesin [place], [place], [place] and [place]. This disclosure is being madepursuant to the Care Everywhere program and may not contain all information available regarding this patient. Last updated 18.[facility] Allergies No known active allergies Medications * Be aware that medications may not be up to date on this document. Alwaysverify current medications with the patient. * Other(Started 01/01/2023) Take 11 mcg by mouth daily before breakfast Compound:Liothyronine SR: 11mcg in AM in addition to 7.5mcg in PM 2 refills by 01/01/2024 * Other(Started 01/01/2023) Take 7.5 mcg by mouth daily before dinner Liothyronine Slow release compounded 7.5mcg in PM 3 refills by 01/01/2024 * [place] & Syringes MISC(Started 05/10/2023) Use 1 Each as needed 25 gauge 1 in needle for change after drawn medication, for delivery of Cortef 3 refills by 05/09/2024 * estradiol (Estrace) 0.1 MG/GM vaginal cream(Started 07/16/2023) Insert 1 g into the vagina once daily 1 refill by 07/15/2024 * Synthroid 75 MCG tablet(Started 07/22/2023) TAKE 1 TABLET BY MOUTH EVERY DAY BEFORE BREAKFAST 2 refills by 07/21/2024 * hydrocortisone (Cortef) 5 MG tablet(Started 07/22/2023) TAKE 3 (THREE) TABLETS BY MOUTH 2 TIMES DAILY 2 refills by 07/21/2024 * Syringe/Needle, Disp, (SYRINGE 3CC/25GX1 ) 25G X 1 3 ML MISC(Started 12/31/2023) Use 1 Each as needed * hydrocortisone sodium succinate PF (Solu-CORTEF) injection(Started 12/31/2023) 100 (one hundred) mg by Intravenous route every 6 hours In case of an emergency inject once every 6to 8 hours: Go to the emergency room if requiring injection 2 refills by 12/30/2024 * liothyronine (Cytomel) 5 MCG tablet(Started 01/13/2024) 5 MG IN THE MORNING BETWEEN 7 AND 9:00 A.M. AND 5 MG IN THE AFTERNOON EVENING BETWEEN 2 AND 3 P.M. THIS REPLACES CONFOUNDED LIOTHYRONINE 1 refill by 01/12/2025 Active Problems No known active problems Social [...] Mass Index 25.19 07/16/2023 1:18 PM CDT Procedures * DEXA BONE DENSITY AXIAL SKELETON(Performed 05/19/2024) Performed for Post-menopausal * MAMMOGRAM(Performed 05/19/2024) * VITAMIN B12 FOLATE PANEL(Performed 08/19/2023) * TSH(Performed 08/19/2023) * T4 FREE(Performed 08/19/2023) * T3 TOTAL(Performed 08/19/2023) * CBC W AUTO DIFFERENTIAL(Performed 08/19/2023) * COMPREHENSIVE METABOLIC PANEL(Performed 08/19/2023) * T3 FREE(Performed 03/14/2023) * TSH(Performed 03/14/2023) * T4 FREE(Performed 03/14/2023) * T3 TOTAL(Performed 03/14/2023) * URINALYSIS W/MICROSCOPIC REFLEX TO CULTURE(Performed 01/10/2023) Performed for Urinary frequency * LIPASE BLOOD(Performed 01/10/2023) Performed for Serum lipase elevation * FRUCTOSAMINE(Performed 01/10/2023) Performed for IGT (impaired glucose tolerance) * COMPREHENSIVE METABOLIC PANEL(Performed 01/10/2023) Performed for IGT (impaired glucose tolerance), Adrenal insufficiency (HCC), Hypothyroidism, acquired, Goiter, Serum lipase elevation * T3 TOTAL(Performed 01/10/2023) Performed for Hypothyroidism, acquired, Goiter * T4 FREE(Performed 01/10/2023) Performed for Hypothyroidism, acquired, Goiter * TSH(Performed 01/10/2023) Performed for Hypothyroidism, acquired, Goiter * CULTURE URINE REFLEXED III(Performed 01/10/2023) * TSH(Performed 09/25/2022) * FRUCTOSAMINE(Performed 09/25/2022) * ACTH(Performed 09/25/2022) Performed for Adrenal insufficiency (HCC) * LIPASE BLOOD(Performed 09/25/2022) Performed for Hypothyroidism, acquired, Adrenal insufficiency (HCC), Hyperglycemia * AMYLASE BLOOD(Performed 09/25/2022) Performed for Hypothyroidism, acquired, Adrenal insufficiency (HCC), Hyperglycemia * ALDOLASE(Performed 09/18/2022) * T4 FREE(Performed 09/18/2022) * T3 TOTAL(Performed 09/18/2022) * C-PEPTIDE(Performed 09/18/2022) * CBC W AUTO DIFFERENTIAL(Performed 09/18/2022) * COMPREHENSIVE METABOLIC PANEL(Performed 09/18/2022) * LIPID PROFILE(Performed 09/18/2022) * TSH(Performed 01/11/2022) * T4 FREE(Performed 01/11/2022) * T3 TOTAL(Performed 01/11/2022) * COMPREHENSIVE METABOLIC PANEL(Performed 01/11/2022) * US SOFT TISSUE HEAD NECK(Performed 12/14/2021) * TSH(Performed 10/17/2021) * T4 FREE(Performed 10/17/2021) * T3 TOTAL(Performed 10/17/2021) * COMPREHENSIVE METABOLIC PANEL(Performed 10/17/2021) * DEXA BONE DENSITY 2 SITES(Performed 10/10/2021) * FRUCTOSAMINE(Performed 01/12/2021) Performed for Hyperglycemia * C-PEPTIDE(Performed 01/12/2021) Performed for Hyperglycemia * THYROID AB PANEL (TPO AB+THYROGLOB AB)(Performed 01/12/2021) Performed for Hypothyroidism, unspecified type * FSH + LH PANEL(Performed 01/12/2021) Performed for Postmenopausal * ACTH(Performed 01/12/2021) Performed for Adrenal insufficiency (HCC) * T3 TOTAL(Performed 01/12/2021) Performed for Hypothyroidism, unspecified type * T4 FREE(Performed 01/12/2021) Performed for Hypothyroidism, unspecified type * TSH(Performed 01/12/2021) Performed for Hypothyroidism, unspecified type Results * MAMMOGRAM (05/19/2024) Anatomical Region Laterality Modality Other 05/19/2024 Narrative 05/19/2024 Ordered by an unspecified provider. Scanned Document SCANNING ONLY * DEXA BONE DENSITY AXIAL SKELETON (05/19/2024) Anatomical Region Laterality Modality Other 05/19/2024 Erin Ovalles MD DEXA ORDERABLES * CBC WITH DIFFERENTIAL (08/19/2023 7:15 AM CDT) Only the most recent of2 resultswithin the time period is included. White Blood Cell Count 7.7 3.8 - 10.8 Thousand/u L [facility] RBC 4.31 3.80 - 5.10 Million/uL [facility] Hemoglobin 12.5 11.7 - 15.5 g/dL [facility] Hematocrit 37.4 35.0 - 45.0 % [facility] MCV 86.8 80.0 - 100.0 fL [facility] MCH 29.0 27.0 - 33.0 pg [facility] MCHC 33.4 32.0 - 36.0 g/dL [facility] RDW 12.1 11.0 - 15.0 % [facility] Platelet Count 245 140 - 400 Thousand/u L [facility] MPV 11.9 7.5 - 12.5 fL [facility] Neutrophil Absolute 3396 1500 - 7800 cells/uL [facility] Lymphocytes Absolute 3380 850 - 3900 cells/uL [facility] Absolute Monocytes 701 200 - 950 cells/uL [facility] Eosinophils Absolute 169 15 - 500 cells/uL [facility] Basophils Absolute 54 0 - 200 cells/uL [facility] Granulocytes % 44.1 % [facility] Lymphocytes % 43.9 % [facility] Monocytes % 9.1 % [facility] Eosinophils % 2.2 % [facility] Basophils % 0.7 % [facility] Comment: Test Performed at: [facility] [address] [place] [address] MICKI STEVENSON MD 08/19/2023 7:15 AM CDT 08/19/2023 7:17 AM CDT Erin Ovalles MD LAB - HEMATOLOGY ORDERABLES [facility] [address] [place] [address] * COMPREHENSIVE METABOLIC PANEL (08/19/2023 7:15 AM CDT) Only the most recent of5 resultswithin the time period is included. Pathologist [facility] Glucose 85 65 - 99 mg/dL [facility] Comment: Fasting reference interval BUN 17 7 - 25 mg/dL [facility] Creatinine 0.74 0.50 - 1.05 mg/dL [facility] eGFR by Cystatin C 91 > OR = 60 mL/min/1. 73m2 [facility] BUN/Creatinine Ratio SEE NOTE: (calc) [facility] Comment: Not Reported: BUN and [...] 29 U/L [facility] Comment: Test Performed at: [facility] [address] [place] [address] MICKI STEVENSON MD 08/19/2023 7:15 AM CDT 08/19/2023 7:17 AM CDT Erin Ovalles MD LAB - CHEMISTRY ORDERABLES Performing Organization Address [facility] de Phone Number [facility] [address] [place] [address] * VITAMIN B12 FOLATE PANEL (08/19/2023 7:15 AM CDT) Pathologist [facility] Vitamin B12 652 200 - 1100 pg/mL [facility] Folate 19.4 ng/mL [facility] Comment: Reference Range Low: <3.4 Borderline: 3.4-5.4 Normal: >5.4 Test Performed at: [facility] [address] [place] [address] MICKI STEVENSON MD 08/19/2023 7:15 AM CDT 08/19/2023 7:17 AM CDT Erin Ovalles MD LAB - CHEMISTRY ORDERABLES Performing Organization Address [facility] de Phone Number [facility] [address] [place] [address] * TSH (08/19/2023 7:15 AM CDT) Only the most recent of7 resultswithin the time period is included. Pathologist [facility] TSH 0.99 0.40 - 4.50 mIU/L [facility] Comment: Test Performed at: [place] [address] MICKI STEVENSON MD 08/19/2023 7:15 AM CDT 08/19/2023 7:17 AM CDT Erin Ovalles MD LAB - CHEMISTRY ORDERABLES Performing Organization Address City/[facility] Co de Phone Number [facility] [phone] [place] [address] * T4 FREE (08/19/2023 7:15 AM CDT) Only the most recent of7 resultswithin the time period is included. T4 Free 0.9 0.8 - 1.8 ng/dL [facility] Comment: Test Performed at: [facility] [employer] [address] [place] [address] MICKI STEVENSON MD 08/19/2023 7:15 AM CDT 08/19/2023 7:17 AM CDT Erin Ovalles MD LAB - CHEMISTRY ORDERABLES Performing Organization Address [facility] Co de Phone Number [facility] [phone] [place] [address] * T3 TOTAL (08/19/2023 7:15 AM CDT) Only the most recent of7 resultswithin the time period is included. T3 Total 96 76 - 181 ng/dL [facility] Comment: Test Performed at: [place] [address] MICKI STEVENSON MD 08/19/2023 7:15 AM CDT 08/19/2023 7:17 AM CDT Erin Ovalles MD LAB - CHEMISTRY ORDERABLES Performing Organization Address [facility] Co de Phone Number [facility] [address] [place] [address] * T3 FREE (03/14/2023 7:35 AM XEROX MACHINE MECHANIC) T3 Free 3.1 2.3 - 4.2 pg/mL [facility] Comment: Test Performed at: [facility] [address] [address] [facility] [place] [address] MICKI STEVENSON MD 03/14/2023 7:35 AM XEROX MACHINE MECHANIC 03/14/2023 7:35 AM XEROX MACHINE MECHANIC Erin Ovalles MD LAB - CHEMISTRY ORDERABLES Performing Organization Address [facility] Co de Phone Number [address] [address] * CULTURE URINE REFLEXED III (01/10/2023 7:47 AM CDT) Reflexive Urine Culture See Below [facility] Comment: NO CULTURE INDICATED Test Performed at: [facility] [address] MICKI STEVENSON MD 01/10/2023 7:47 AM CDT 01/10/2023 7:53 AM CDT Erin Ovalles MD LAB - MICROBIOLO GY ORDERABLES Performing Organization Address [facility] Co de Phone Number [address] [address] * (ABNORMAL) URINALYSIS W/MICROSCOPIC REFLEX TO CULTURE (01/10/2023 7:47 AM CDT) Color UA YELLOW YELLOW [facility] Appearance CLEAR CLEAR [facility] Specific [place] UA 1.014 1.001 - 1.035 [facility] pH UA 6.0 5.0 - 8.0 [facility] Glucose UA NEGATIVE NEGATIVE [facility] Bilirubin UA NEGATIVE NEGATIVE [facility] Ketone UA NEGATIVE NEGATIVE [facility] Blood UA NEGATIVE NEGATIVE [facility] Protein UA NEGATIVE NEGATIVE [facility] Nitrite NEGATIVE NEGATIVE [facility] Leukocyte Esterase NEGATIVE NEGATIVE [facility] WBC UA NONE SEEN < OR = 5 /HPF [facility] RBC UA NONE SEEN < OR = 2 /HPF [facility] Epithelial Cell UA 6-10(A) < OR = 5 /HPF [facility] Bacteria UA NONE SEEN NONE SEEN /HPF [facility] Hyaline Casts NONE SEEN NONE SEEN /LPF [facility] Note See Below [facility] Comment: This urine was analyzed for the presence of WBC, RBC, bacteria, casts, and other formed elements. Only those elements seen were reported. Test Performed at: [facility] [address] MICKI STEVENSON MD Urine URINE SPECIMEN OBTAINED BY CLEAN CATCH PROCEDURE / Unknown 01/10/2023 7:47 AM CDT 01/10/2023 7:53 AM CDT Erin Ovalles MD LAB - URINALYSIS ORDERABLES Performing Organization Address [facility] Co de Phone Number [facility] [phone] [place] [address] * FRUCTOSAMINE (01/10/2023 7:47 AM CDT) Only the most recent of3 resultswithin the time period is included. Fructosamine 217 205 - 285 umol/L [facility] Comment: Test Performed at: [facility] [address] [place] [address] SHAISTA PHILLIP MD,PHD,DIANE Blood BLOOD SPECIMEN / Unknown 01/10/2023 7:47 AM CDT 01/10/2023 7:53 AM CDT Erin Ovalles MD LAB - CHEMISTRY ORDERABLES Performing Organization Address [facility] Co de Phone Number [facility] [address] [place] [address] * LIPASE BLOOD (01/10/2023 7:47 AM CDT) Only the most recent of2 resultswithin the time period is included. Lipase 19 7 - 60 U/L [facility] Comment: REPORT COMMENT: FASTING:YES Test Performed at: [facility] [place] [address] [place] [address] MICKI STEVENSON MD Blood BLOOD SPECIMEN / Unknown 01/10/2023 7:47 AM CDT 01/10/2023 7:53 AM CDT Erin Ovalles MD LAB - CHEMISTRY ORDERABLES Performing Organization Address [facility] Co de Phone Number [facility] [phone] [place] [address] * ACTH (09/25/2022 7:44 AM CDT) Only the most recent of2 resultswithin the time period is included. Pathologist [facility] ACTH 30 6 - 50 pg/mL [facility] Comment: Reference range applies only to specimens collected between 7am-10am. Test Performed at: [facility] [address] [place], [place] CARLITOS CARVER MD,PHD Blood BLOOD SPECIMEN / Unknown 09/25/2022 7:44 AM CDT 09/25/2022 7:45 AM CDT Erin Ovalles MD LAB - CHEMISTRY ORDERABLES Performing Organization Address [facility] Co de Phone Number [address] [address] * AMYLASE BLOOD (09/25/2022 7:44 AM CDT) [facility] Amylase 55 21 - 101 U/L [facility] Comment: Test Performed at: [facility] [address] [place] [address] MICKI STEVENSON MD Blood BLOOD SPECIMEN / Unknown 09/25/2022 7:44 AM CDT 09/25/2022 7:45 AM CDT Erin Ovalles MD LAB - CHEMISTRY ORDERABLES Performing Organization Address [facility] Co de Phone Number [place] [phone] * C-PEPTIDE (09/18/2022 7:47 AM CDT) Only the most recent of2 resultswithin the time period is included. [facility] C-Peptide 2.23 0.80 - 3.85 ng/mL [facility] Comment: Test Performed at: [facility] [address] [employer] [address] MICKI STEVENSON MD 09/18/2022 7:47 AM CDT 09/18/2022 7:47 AM CDT Erin Ovalles MD LAB - CHEMISTRY ORDERABLES Performing Organization Address [facility] Co de Phone Number [facility] [phone] [place] [address] * ALDOLASE (09/18/2022 7:47 AM CDT) Aldolase 4.6 < OR = 8.1 U/L [facility] Comment: REPORT COMMENT: FASTING:YES Test Performed at: [facility] [address] [place] [address] MICKI STEVENSON MD 09/18/2022 7:47 AM CDT 09/18/2022 7:47 AM CDT Erin Ovalles MD LAB - CHEMISTRY ORDERABLES [facility] [address] [place] [address] * (ABNORMAL) LIPID PROFILE (09/18/2022 7:47 AM [...] factors. LDL-C is now calculated using the Aashish-Manrique calculation, which is a validated novel method providing better accuracy than the Friedewald equation in the estimation of LDL-C. Aashish MUNSON et al. ROSSY. 2013;310(19): 5023-4531 (http://education.[employer].Aloqa/faq/PLL154) CHOL/HDLC RATIO 3.2 <5.0 (calc) [facility] Non HDL Cholesterol 129 <130 mg/dL (calc) [facility] Comment: For patients with diabetes plus 1 major ASCVD risk factor, treating to a non-HDL-C goal of <100 mg/dL (LDL-C of <70 mg/dL) is considered a therapeutic option. Test Performed at: [facility] [address] [place] [address] MICKI STEVENSON MD 09/18/2022 7:47 AM CDT 09/18/2022 7:47 AM CDT Erin Ovalles MD LAB - CHEMISTRY ORDERABLES Performing Organization Address [facility] Co de Phone Number [facility] [address] [place] [address] * US SOFT TISSUE HEAD NECK (12/14/2021) Anatomical Region Laterality Modality Head Ultrasound Erin Ovalles MD US ORDERABLES * DEXA BONE DENSITY 2 SITES (10/10/2021) Anatomical Region Laterality Modality Other Erin Ovalles MD DEXA ORDERABLES * THYROID AB PANEL (TPO AB+THYROGLOB AB) (01/12/2021 7:27 AM CDT) Thyroglobulin Antibody <1 < or = 1 IU/mL [facility] Thyroid Peroxidase TPO Antibody <1 <9 IU/mL [facility] Comment: Test Performed at: [place] [address] MOISES OROZCO DO,MPH Blood BLOOD SPECIMEN / Unknown 01/12/2021 7:27 AM CDT 01/12/2021 7:29 AM CDT Erin Ovalles MD LAB - CHEMISTRY ORDERABLES Performing Organization Address [facility] Co de Phone Number [facility] [address] [place] [address] * FSH + LH PANEL (01/12/2021 7:27 AM CDT) FSH 84.8 mIU/mL [facility] Comment: Reference Range Follicular Phase 2.5-10.2 Mid-cycle Peak 3.1-17.7 Luteal Phase 1.5- 9.1 Postmenopausal 23.0-116.3 LH 40.9 mIU/mL [facility] Comment: Reference Range Follicular Phase 1.9-12.5 Mid-Cycle Peak 8.7-76.3 Luteal Phase 0.5-16.9 Postmenopausal 10.0-54.7 Test Performed at: [facility] [place] [address] MOISES OROZCO DO,MPH Blood BLOOD SPECIMEN / Unknown 01/12/2021 7:27 AM CDT 01/12/2021 7:29 AM CDT Erin Ovalles MD LAB - CHEMISTRY ORDERABLES [facility] [address] [place] [address] Care Teams Production Team Manager Relationship Specialty Start Date End Date Janie Mackenzie MD [address] [place] [phone] PCP - General Family Medicine 01/24/22
--- OUTSIDE RECORDS SUMMARY | 2024-06-12 10:30 | XMS_ITS | Clinical Summary ---
Author Organization [facility] Address [address] [facility] [place] [address] Care Team Providers Care Veneer Sample Maker Name Role Phone Janie Mackenzie MD Primary Care Pro vider Source Comments [facility],non-owned Affiliates and Associated Physician Practices is amultiple site organization consisting of ambulatory clinics and hospital sitesin [place], [place], [place] and [place]. This disclosure is being madepursuant to the Care Everywhere program and may not contain all information available regarding this patient. Last updated 18.[facility] Allergies No known active allergies Medications * [...] in PM 90 Each 3 01/01/2023 Active [place] & Syringes MISC Use 1 Each as needed 25 gauge [...] Active Active Problems No known active problems Encounters Date Type Department Care Team Description 05/20/2024 Orders Only [facility] - Endocrinology [address] [place] [address], [address] [place] [address] Erin Ovalles MD Post-menopausal from Last 3 Months Family History Medical History Relation Name Comments CAD (Coronary Artery Disease) Father cabg COPD - Chronic Obstructive Pulmonary Disease Father Cancer - Prostate Father Heart Failure Father Hyperlipidemia Father Hypertension Father Osteoporosis Maternal Grandmother COPD - Chronic Obstructive Pulmonary Disease Mother Hyperlipidemia Mother Pacemaker Osteoporosis Sister Diabetes - Type 2 Neg Hx Other - Endocrine Neg Hx AI negativ e Thyroid Disease Neg Hx Relation Name Status Comments Father Alive Maternal Grandmother Mother Alive Sister Social History Tobacco Use Types Packs/Day Years [...] 07/16/2023 1:18 PM CDT Plan of Treatment Health Maintenance Due Date Last Done Comments COLOGUARD (AGES 45-75) - COLON CA SCREENING 1961 COLON MONITORING 1961 COLONOSCOPY - COLON CA SCREENING 1961 CT COLONOGRAPHY - COLON CA SCREENING 1961 Colorectal Cancer Screening 1961 FIT - COLON CA SCREENING 1961 FLEX SIG - COLON CA SCREENING 1961 PAP SMEAR 1961 HIV SCREENING 02/20/1976 HEPATITIS C SCREENING 02/15/1979 DTAP/TDAP/TD VACCINES (1 - Tdap) 02/20/1980 PNEUMOCOCCAL VACCINE 50+ (1 of 1 - PCV) 2011 ZOSTER VACCINE (1 of 2) 2011 Respiratory Syncytial Virus (RSV) Vaccine Pt: or over 60 yrs (1 - Risk 60-74 years 1-dose series) 2021 COVID-19 VACCINE (1 - 2023- season) 2023 INFLUENZA VACCINE (#1) 2023 9, 01/19/2017, 02/06/2016, Additional history exists DEPRESSION SCREENING 04/29/2024 MAMMOGRAM 05/19/2026 05/19/2024, 10/03/2021 SCREENING FOR DIABETES 08/18/2026 4, 01/10/2023, 09/18/2022, Additional history exists LIPID TESTING 09/19/2027 09/18/2022 HEPATITIS B VACCINE Aged Out No longe r eligible based on patient's age to complete this topic HIB VACCINE Aged Out No longer eligi ble based on patient's age to complete this topic HPV VACCINE Aged Out No longer eligi ble based on patient's age to complete this topic MENINGOCOCCAL (Group B) VACCINE Aged Out No longer eligible based on patient's age to complete this topic MENINGOCOCCAL VACCINE Aged Out No aren emelia eligible based on patient's age to complete this topic Procedures Procedure Name Priority Date/Time Associated Diagnosis [...] COMPREHENSIVE METABOLIC PANEL (08/19/2023 7:15 AM CDT) Glucose 85 65 - 99 mg/dL [facility] [...] 29 U/L [facility] Comment: Test Performed at: [facility] [address] [facility] [place] [address] MICKI STEVENSON MD 08/19/2023 7:15 AM CDT 08/19/2023 7:17 AM CDT Erin Ovalles MD LAB - CHEMISTRY ORDERABLES [facility] [address] [place] [address] * (ABNORMAL) LIPID PROFILE (09/18/2022 7:47 AM [...] LDL-C. Aashish MUNSON et al. ROSSY. 2013;310(19): 4255-6441 (http://education.[employer].StarbuckLabs2/faq/SEP253) CHOL/HDLC RATIO 3.2 <5.0 (calc) [facility] Non HDL Cholesterol 129 <130 mg/dL (calc) [facility] Comment: For patients with diabetes plus 1 major ASCVD risk factor, treating to a non-HDL-C goal of <100 mg/dL (LDL-C of <70 mg/dL) is considered a therapeutic option. Test Performed at: [facility] [address] [facility] [place] [address] MICKI STEVENSON MD 09/18/2022 7:47 AM CDT 09/18/2022 7:47 AM CDT Erin Ovalles MD LAB - CHEMISTRY ORDERABLES [facility] [address] [place] [address] from Last 3 Months or Most Recently Relevant to Health Maintenance Care Teams Veneer Sample Maker Relationship Specialty Start Date End Date Janie Mackenzie MD [address] [place] [id number] PCP - General Family Medicine 01/24/22
--- OUTSIDE RECORDS SUMMARY | 2024-06-12 10:30 | XMS_ITS | Clinical Summary ---
Author Organization [facility] Address [address] [place] [address] Care Team Providers Care Gift Manager Name Role Phone Jammie Campos MD Primary Care Provider Erin Ovalles MD Unavailable [phone] Allergies No known active allergies Medications estradioL [...] by mouth daily 90 tablet 3 03/23/20 24 025 Active miscellaneous medical supply misc Liothyronine slow release oral 11 mcg daily in am and 7.5 mcg daily at 12 pm Active hydrocortisone (CORTEF) 5 mg tabletIndications: Adrenal insufficiency (HCC) Take 8 tablets (40 mg total) by mouth daily 720 tablet 3 05/08/19 25 026 Active Active Problems Problem Noted Date Diagnosed Date Adrenal insufficiency 09/20/2023 Assessment & Plan (03/23/2024 9:15 AM BUS PERSON): Chronic, stable Patient hemodynamically stable Patient asymptomatic [...] current dose. 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 Check labs Vaccinations UTD Acquired hypothyroidism 12/20/2015 Overview (08/02/2016): Hypothyroidism (acquired) Assessment & Plan (03/23/2024 9:14 AM BUS PERSON): Chronic, unknown status Patient currently on Synthroid [...] metatarsal bone of left foot 10/16/2016 09/20/2023 Encounters Date Type Department Care Team Description 05/08/2024 Telephone [facility] [address] [address] Ilia Contreras MD 03/23/2024 8:30 AM BUS PERSON Office Visit [facility] Diabetes and Endocrinology [address] [place] [phone] Ilia Contreras MD Adrenal insufficiency (HCC) (Primary Dx); Acquired hypothyroidism; IGT (impaired glucose tolerance); Vitamin D deficiency 03/23/2024 Telephone [facility] Diabetes and Endocrinology [address] [place] [phone] Ilia Contreras MD from Last 3 Months Immunizations Name Administration Dates Next Due Influenza, Quadrivalent, Kaylyn l Culture-based MDCK, Preservative Free, Antibiotic Free, Intramuscular 05/26/2023,02/27/2022,01/19/2017 Influenza, Quadrivalent, Spl it, Preservative Free, Intramuscular 02/28/2021,02/01/2020,02/13/2019,02/05 Influenza, Trivalent, IM (MDV) 04/01/2014 MMR 02/13/2019 Pneumococcal Polysaccharide PPV23 02/01/2020 RSV, Bivalent, Protein Subun it Rsvpref, Diluent (Abrysvo) 05/26/2023 Tdap 01/19/2017 ZOSTER Recombinant 10/19/2018,06/15/2018 Surgical History Surgery Date Site/Laterality Comments TOTAL ABDOMINAL HYSTERECTOMY Hysterectomy, total OTHER SURGICAL HISTORY Endometriosis: Laparascope APPENDECTOMY 1978 SECTION 1985 BLADDER SURGERY bladder lift/sling Medical History Medical History Date Comments Delivered by section 1985 Ce sarean delivery; Comments: MMB 12/20/2015 - Endometriosis Endometriosis; C omments: MMB 12/20/2015 - Disorder of thyroid Thyroid dise ase Hx Other Medical appendix 1978; Comments: JNS 05/29/2016 - Arthritis 6 months ago Osteoporosis Osteopenia Chest pain Diverticulosis Adrenal insufficiency (HCC) Fibromyalgia Chronic fatigue Chickenpox Shingles x4 Closed left fibular fracture 10/16/2016 Closed nondisplaced fracture of fifth metatarsal bone of left foot 10/16/2016 Closed fracture of base of f ifth metatarsal bone of left foot at metaphyseal-diaphyseal junction 11/08/2016 Closed fracture of distal en d of left fibula with delayed healing 11/08/2016 Family History Medical History Relation Name Comments Miscarriages / Stillbirths Daughter Shanti Arthritis Father Emile COPD Father Emile Clotting disorder Father Emile Colon polyps Father Emile Heart disease Father Emiel Hypertension Father Emile Kidney disease Father Emile Pancreatic cancer Father Emile neuro-endo crine tumor Prostate cancer Father Emile Arthritis Mother Marie COPD Mother Marie Heart disease Mother Marie Hypertension Mother Marie Memory loss Mother Marie Relation Name Status Comments Daughter Shanti Baptiste Mother Marie Social History Tobacco Use Types Packs/Day Years [...] on file Legal Sex Female 5:59 AM BUS PERSON Gender Identity Not on file Sexual Orientation Not on file Obstetrics History Last Filed Vital Signs Vital Sign Reading Time Taken Comments Blood Pressure 122/82 03/23/2024 8:30 AM BUS PERSON Pulse 90 03/23/2024 8:30 AM BUS PERSON Temperature 36.9 C (98.4 F) 07/12/2022 1:06 PM CDT Respiratory Rate 18 09/20/2023 10:31 AM CDT Oxygen Saturation 96% 07/12/2022 1:06 PM CDT Inhaled Oxygen Concentration - - Weight 59 kg (130 lb) 03/23/2024 8:30 AM BUS PERSON Height 152.4 cm (5') 03/23/2024 8:30 AM BUS PERSON Body Mass Index 25.39 03/23/2024 8:30 AM BUS PERSON Plan of Treatment Health Maintenance Due Date Last Done Comments Breast Cancer Screening-Mammogram 1960 Covid-19 Vaccine ( season) 2023 05/26/2023, 04/09/2022, 02/28/2021, Additional history exists Influenza Vaccine (#1) 2023 4, 02/27/2022, 02/28/2021, Additional history exists Colon Cancer Screening-Colonoscopy 02/05/2024 02/04/2014 Depression Screening 09/19/2024 09/20/2023, 09/20/2023, 11/20/2021 Regular Well Visit/Exam 18-64 09/19/2024 09/20/2023, 11/20/2021 DTaP/Tdap/Td Vaccine (2 - Td or Tdap) 01/19/2027 01/19/2017 Colon Cancer Screening-CT Colonography Discontinued 02/04/2014 Colon Cancer Screening-DNA Stool Discontinued 02/04/2014 Colon Cancer Screening-FIT Discontinued 02/04/2014 Colon Cancer Screening-Sigmoidoscopy Discontinued 02/04/2014 Zoster Vaccine Completed 10/19/2018, 06/15/2018 Pneumococcal vaccine <65 Aged Out 02/01/2020 No longer eligible based on patient's age to complete this topic Hepatitis C Screening Completed 01/11/2022 Hepatitis B Screening Discontinued Procedures Procedure Name Priority Date/Time Associated Diagnosis [...] a test for HCV RNA (test code 58269) is suggested. For additional information please refer to http://education.[employer]/faq/KQM94n7 (This link is being provided for informational/ educational purposes only.) Blood specimen (specimen) 01/11/2022 7:29 AM CDT 01/11/2022 7:29 AM CDT Narrative [facility] - 01/12/2022 9:29 AM CDT FASTING:YES FASTING: YES Janie Mackenzie MD LAB MICROBIOLOGY - GENERAL ORDERABLES Final Result [facility] [address] [facility] [place] [phone] * COLONOSCOPY REPORT (02/04/2014) Anatomical Region Laterality Modality Other Narrative 02/04/2014 Ordered by an unspecified provider. Historical Provider GI PROCEDURE ORDERABLES F inal Result from Last 3 Months or Most Recently Relevant to Health Maintenance Insurance [facility] CHOICE [facility] PPO [place] [facility] Care Teams Gift Manager Relationship Specialty Start Date End Date Jammie Campos MD PCP - General Family Medicine 09/20/23 [place] [address] [place] [address] Referring Physician Endocrinology Diabetes & Metabolism 09/20/23
--- OUTSIDE RECORDS SUMMARY | 2024-06-12 10:30 | XMS_ITS | Encounter Summary ---
Author Organization [facility] Address [facility] [place] [address] Care Team Providers Care Mold Repair Technician Name Role Phone Nagi Asencio MD Primary Care Provider [phone] Nayan Feldman MD Unavailable Cary Armijo MD Primary Care Provider [phone] Encounter Details Date Type Department Care Team (Late st Contact Info) Description 11/25/2018 Abstract [facility] at [address] [address] Rani Garcia MA Social History Tobacco Use Types Packs/Day Years Used Date Smoking Tobacco: Never Smokeless Tobacco: Never Alcohol Use Standard Drinks/Week Comments No 0 (1 standard drink = 0.6 oz pur e alcohol) Comments No Sex and Gender Information Value Date Recorded Sex Assigned at Not on file 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 AMER. 99(A) <=90 EGFR AFR. AMER. 114(A) <=90 11/24/2018 us Doc [facility] Abstract LABORATORY Final Result documented in this encounter Visit Diagnoses Not on filedocumented in this encounter Care Teams Mold Repair Technician Relationship Specialty Start Date End Date Nagi Asencio MD [address] [place], [place] [id number] PCP - General FAMILY PRACTICE 08/01/18 01/20/19 Cary Armijo MD [address] [facility] [address] [place] [address] PCP - General FAMILY PRACTICE 01/21/19 Nayan Feldman MD Three [facility]. [address] [place], [place] [id number] [place] Draw Frame Runner INTERVENTIONAL CARDIOLOGY 08/07/18 documented as of this encounter
--- OUTSIDE RECORDS SUMMARY | 2024-06-12 10:30 | XMS_ITS | Clinical Summary ---
Author Organization [facility] Address [facility] [place] [address] Care Team Providers Care Cask Maker Name Role Phone Nayan Feldman MD Unavailable Cary Armijo MD Primary Care Provider [phone] Allergies No known active allergies Medications hydrocortisone 5 MG tablet Take 15 mg by mouth 2 (two) times a day. 6 9 Active SYNTHROID 25 MCG tablet Take 1 tablet (25 mcg total) by mouth 3 (three) times daily. 9 Active estradiol (ESTRACE VAGINAL) 0.1 MG/GM vaginal creamIndication s:Vaginal dryness, menopausal Use 1 gram vaginally 2 times a week 42.5 g 3 9 Active liothyronine 5 MCG Tab Take 1 tablet by mouth 3 (three) times daily with meals. Active Active Problems Problem Noted Date Diagnosed Date Coronary atherosclerosis 12/14/2019 Chronic fatigue 12/15/2018 Fibromyalgia 09/06/2018 Closed fracture of distal en d of left fibula with delayed healing 11/08/2016 Closed fracture of base of f ifth metatarsal bone of left foot at metaphyseal-diaphyseal junction 11/08/2016 Acquired hypothyroidism 12/20/2015 Overview (12/15/2018): Overview: Hypothyroidism (acquired) Chronic fatigue syndrome 12/20/2015 Overview (12/15/2018): Overview: Chronic fatigue Thyroid nodule 12/20/2015 Overview (12/15/2018): Overview: Right thyroid nodule Epigastric pain Resolved Problems Problem Noted Date Diagnosed Date Resolved Date Other chest pain 09/06/2018 12/14/2019 Heart murmur 12/14/2019 Immunizations Name Administration Dates Next Due Fluzone 6 Months+ Quad (0.5 mL Prefilled Syringe) 02/13/2019 Influenza (Generic) 04/01/2014 Influenza Adult (Generic) 12/15/2018(Def erred: Patient Refused),01/19/2017,02/06/2016 MMR (MMRII) 02/13/2019 Shingrix 10/19/2018,06/15/2018 Tdap (Generic) 01/19/2017 Family History Medical History Relation Comments Arthritis Father COPD Father Cancer Father Heart Disease Father CAD, bypass in h is mid 70's Hyperlipidemia Father Hypertension Father Arthritis Mother Heart Disease Mother arrythmia at age 51 Hyperlipidemia Mother Relation Status Comments Father Alive Mother Alive Social History Tobacco Use Types Packs/Day Years Used Date Smoking Tobacco: Never Smokeless Tobacco: Never Alcohol Use Standard Drinks/Week Comments No 0 (1 standard drink = 0.6 oz pur e alcohol) PHQ-2 Answer Date Recorded PHQ-2 Score 0 04/06/2019 Comments No Sex and Gender Information Value Date Recorded Sex Assigned at Not on file 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 Gender Identity Not on file Sexual Orientation Not on file Last Filed Vital Signs Vital Sign Reading Time Taken Comments Blood Pressure 131/68 12/15/2018 8:34 AM CDT Pulse 71 12/15/2018 8:34 AM CDT Temperature 36.7 C (98.1 F) 12/15/2018 8:34 AM CDT Respiratory Rate 18 12/15/2018 8:34 AM CDT Oxygen Saturation 97% 12/15/2018 8:34 AM CDT Inhaled Oxygen Concentration - - Weight 63.2 kg (139 lb 4.8 oz) 12/15/2018 8:34 A M CDT Height 152.4 cm (5') 12/15/2018 8:34 AM CDT Body Mass Index 27.21 12/15/2018 8:34 AM CDT Plan of Treatment Health Maintenance Due Date Last Done Comments ASCVD Statin 1961 Annual Physical 02/20/1964 Pneumococcal Vaccine: Pediatrics (0 to 5 Years) and At-Risk Patients (6 to 64 Years) (1 of 2 - PCV) 1967 Hepatitis C 1979 ASCVD LDL 01/20/2020 01/19/2019 RSV Immunization or 60+ Years (1 - Risk 60-74 years 1-dose series) 2021 Mammogram Screening 10/04/2023 10/03/2021 COVID-19 Vaccine ( - season) 2023 Influenza Adult (#1) 2024 02/13/2019, 01/19/2017, 02/06/2016, Additional history exists Colorectal Cancer Screening Colonoscopy (10 Years) 02/05/2024 02/04/2014 DTaP, Tdap and Td Vaccines (2 - Td or Tdap) 01/19/2027 01/19/2017 Zoster Vaccines Completed 10/19/2018, 06/15/2018 Meningococcal B Vaccine Aged Out No l onger eligible based on patient's age to complete this topic Meningococcal Vaccine Aged Out No aren emelia eligible based on patient's age to complete this topic RSV Immunizations Under 20 Months Aged Out No longer eligible based on patient's age to complete this topic Procedures Procedure Name Priority Date/Time Associated Diagnosis Comments MAMMOGRAM GENERIC (SCAN ORDER) 10/03/2021 LIPID PANEL Routine 01/19/2019 7:58 AM CDT Screening cholesterol level COLONOSCOPY GENERIC (SCAN ORDER) Routine 02/04/2014 from Last 3 Months or Most Recently Relevant to Health Maintenance Results * MAMMOGRAM GENERIC (10/03/2021) Anatomical Region Laterality Modality Other 10/03/2021 Narrative 10/03/2021 Ordered by an unspecified provider. us Documents Scanned SCANNING Final Result * (ABNORMAL) LIPID PANEL (01/19/2019 7:58 AM CDT) CHOLESTEROL 210(H) <200 mg/dL [facility] HDL 64 >50 mg/dL [facility] TRIGLYCERIDES 163(H) <150 mg/dL [facility] LDL (CALCULATED) 117(H) mg/dL (calc) [facility] Comment: Reference range: <100 Desirable range <100 mg/dL for primary prevention; <70 mg/dL for patients with CHD or diabetic patients with > or = 2 CHD risk factors. LDL-C is now calculated using the Aashish-Manrique calculation, which is a validated novel method providing better accuracy than the Friedewald equation in the estimation of LDL-C. Aashish SS et al. ROSSY. 2013;310(19): 3616-1553 (http://education.[employer]/faq/EYX663) CHOL/HDL RATIO 3.3 <5.0 (calc) [facility] [place] [facility] NON HDL CHOLESTEROL 146(H) <130 mg/dL (calc) [facility] [place] Comment: For patients with diabetes plus 1 major ASCVD risk factor, treating to a non-HDL-C goal of <100 mg/dL (LDL-C of <70 mg/dL) is considered a therapeutic option. 01/19/2019 7:58 AM CDT 01/19/2019 7:58 AM CDT Narrative [facility] - 01/20/2019 3:24 PM CDT FASTING:YES FASTING: YES Resulting Agency Comment Performing Organization Information: Site ID: [place] Name: [facility] Address: [address] [facility] [place] [address] Director: Azar Jean Baptiste D.O., MPH us Cary Armijo MD LABORATORY Final Result [facility] * COLONOSCOPY (02/04/2014) us Documents Scanned SCANNING Final Result from Last 3 Months or Most Recently Relevant to Health Maintenance Insurance [facility] Care Teams Cask Maker Relationship Specialty Start Date End Date Cary Armijo MD [address] [facility] [address] [place] [address] PCP - General FAMILY PRACTICE 01/21/19 Nayan Feldman MD [facility] [address] [place] [address] [place] Phlebotomist Supervisor/Instructor INTERVENTIONAL CARDIOLOGY 08/07/18
--- OUTSIDE RECORDS SUMMARY | 2024-06-12 10:33 | XMS_ITS | Continuity of Care Document ---
Author Organization [facility] Address [address] [place] [address] Phone Care Team Providers Care Shuttle Fixer Name Role Phone Clarissa Johnson MD Unavailable [...] Diagnoses Date Provider Providers Copied on Encounter [facility], [address], [place], [place], [address] , tel: [phone] Jaida No Information [address] [place], [place], [id number]. tel:[phone] [facility], [address], [place], [place], [address] , tel: [phone] Jaida No Information 6 Alex Cintron[address] [place], [place], [id number]. tel:[phone] [facility], [address], [place], [place], [address] , tel: [phone] [place] Encounter for preventive health examinationHypothyro idism, unspecifiedChronic fatigue, unspecifiedEncounter for immunization 6 Alex [address]intron[address] [place], [place], [address]. tel:[phone] Referring Provider: Clarissa Johnson, [address] [place], [address] . tel:[phone] Family History Family Member Type Diagnosis Age [...] Unspecified Payers Payer name Insurance type Covered green party ID Authoriza tion(s) [facility] CI [id number] [facility] CI [id number] Social History Type Description Quantity Date Captured [...]
[2024-06-12 10:36] VITALS: BP 146/63; PULSE 99; RESP 16; TEMP 36.6; O2SAT 99
== END 2024-06-12 11:56 | disposition home or self-care (01) ==
PROVIDERS: Emergency Provider Nurse Practitioner Family
DX: M54.31 Sciatica, right side (principal); M79.604 Pain in right leg; S70.01XA Contusion of right hip, initial encounter; W19.XXXA Unspecified fall, initial encounter
CPT/HCPCS: 73502; 73552; 73590; 99214; G0463

== ENCOUNTER 2024-07-26 09:15 | Emergency (ER) | payer BC, SELFPAY ==
--- OUTSIDE RECORDS SUMMARY | 2024-07-26 09:19 | XMS_ITS | Clinical Summary ---
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 Gender Identity Not on file Sexual Orientation [...] 2021 Mammogram Screening 10/04/2023 10/03/2021 COVID-19 Vaccine (1 - 2023-2 5 season) 2023 Colorectal Cancer Screening Colonoscopy (10 Years) 02/05/2024 02/04/2014 DTaP, Tdap and Td Vaccines ( 2 - Td or Tdap) 01/19/2027 01/19/2017 Zoster Vaccines Completed 10/19/2018, 06/15/2018 Meningococcal B Vaccine Aged Out No l onger eligible based on patient's age to complete this topic Meningococcal Vaccine Aged Out No aren emelia eligible based on patient's age to complete this topic RSV Immunizations Under 20 Months Aged Out No longer eligible b ased on patient's age to complete this topic [...] factors. LDL-C is now calculated using the Esvin calculation, which is a validated novel method providing better accuracy than the Friedewald equation in the estimation of LDL-C. Aashish MUNSON et al. ROSSY. 2013;310(19): 0378-1108 (http://education.[employer].com/faq/TIS290) CHOL/HDL RATIO 3.3 <5.0 (calc) [facility] NON HDL CHOLESTEROL 146(H) <130 mg/dL (calc) [facility] Comment: For patients with diabetes plus 1 major ASCVD risk factor, treating to a non-HDL-C goal of <100 mg/dL (LDL-C of <70 mg/dL) is considered a therapeutic option. 01/19/2019 7:58 AM CDT 01/19/2019 7:58 AM CDT Narrative [facility] - 01/20/2019 3:24 PM CDT FASTING:YES FASTING: YES Resulting Agency Comment Performing Organization Information: Site ID: [place] Name: [facility] Address: [address] [place] [address] [address] Director: Azar Jean Baptiste D.O., MPH us Cary Armijo MD LABORATORY Final Result [facility] * COLONOSCOPY (02/04/2014) us Documents Scanned SCANNING Final Result from Last 3 Months or Most Recently Relevant to Health Maintenance Insurance [facility] Care Teams Marketing Sales Representative Relationship Specialty Start Date End Date Cary Armijo MD [address] [facility] [address] [place] [id number] PCP - General FAMILY PRACTICE 01/21/19 Nayan Feldman MD Three [facility]. [address] [place], [place] [id number] [employer] Shop Hand INTERVENTIONAL CARDIOLOGY 08/07/18
--- OUTSIDE RECORDS SUMMARY | 2024-07-26 09:19 | XMS_ITS | Clinical Summary ---
Author Organization [facility] 8 [facility] Address [address] [place] [address] Care Team Providers Care Photo Finish Photographer Name Role Phone Erin Ovalles MD Unavailable [phone] No, Physician Primary Care Provider [phone] Allergies No known active allergies Medications estradioL (Estrace) 0.01 % (0.1 mg/gram) vaginal creamIndications:A trophic vaginitis Insert 2 g into the vagina daily For 1-2 weeks, then try to gradually decrease to 2-3x/week 42.5 g 3 09/20/19 24 Active Additional Information Patient not taking.Reported on 07/03/2024 Synthroid 88 mcg tabletIndications: Acquired hypothyroidism Take 1 tablet (88 mcg total) by mouth daily 90 tablet 3 03/23/20 24 025 Active miscellaneous medical supply misc Liothyronine slow release oral 11 mcg daily in am and 7.5 mcg daily at 12 pm Active hydrocortisone (CORTEF) 5 mg tabletIndications: Adrenal insufficiency Take 8 tablets (40 mg total) by mouth daily 720 tablet 3 05/08/19 25 026 Active predniSONE (DELTASONE) 10 mg tabletIndications: Acute right-sided low back pain with right-sided sciatica Take 6 tabs on days 1-2, 5 tabs days 3-4, 4 tabs days 5-6, 3 tabs days 7-8, 2 tabs days 9-10, 1 tab days 11-12 42 tablet 07/04/19 25 Active Active Problems Problem Noted Date Diagnosed Date Adrenal insufficiency 09/20/2023 Assessment & Plan (03/23/2024 9:15 AM CARDROOM PLASTIC CARD GRADER): Chronic, stable Patient hemodynamically stable Patient asymptomatic [...] current dose. She wishes to transition to [facility] Endocrinology so new referral was provided IGT (impaired glucose tolerance) 09/20/2023 Assessment & Plan (03/23/2024 9:15 AM CARDROOM PLASTIC CARD GRADER): Check hemoglobin A1c Assessment & Plan (09/20/2023 [...] skin cancer prevention and screening: referral to respiratory care program director Check labs Vaccinations UTD Acquired hypothyroidism 12/20/2015 Overview (08/02/2016): Hypothyroidism (acquired) Assessment & Plan (03/23/2024 9:14 AM CARDROOM PLASTIC CARD GRADER): Chronic, unknown status Patient currently on Synthroid [...] delayed healing 11/08/2016 09/20/2023 Fracture follow-up 11/08/2016 Closed left fibular fracture 10/16/2016 09/20/2023 Closed nondisplaced fracture of fifth metatarsal bone of left foot 10/16/2016 09/20/2023 Encounters Date Type Department Care Team Description 07/24/2024 Telephone [facility] Medicine [address] [facility] [address], [place] [id number] Guerrero Schumacher DO 07/24/2024 Orders Only [facility] at [address] [address] Guerrero Schumacher, DO Acute right-sided low back pain with right-sided sciatica (Primary Dx) 07/22/2024 Orders Only [facility] at [address] [address] Guerrero Schumacher, DO Acute right-sided low back pain with right-sided sciatica (Primary Dx) 07/03/2024 11:20 AM CARDROOM PLASTIC CARD GRADER Ancillary Procedure [facility] at [address] [address] Acute right-sided low back pain with right-sided sciatica 07/03/2024 10:54 AM CARDROOM PLASTIC CARD GRADER - 07/03/2024 11:59 PM CARDROOM PLASTIC CARD GRADER Hospital Encounter [facility] [address] [place] [address] Discharge Disposition: Discharge to home or self care 07/03/2024 10:30 AM CARDROOM PLASTIC CARD GRADER Office Visit [facility] at [address] [address] Guerrero Schumacher, Acute right-sided low back pain with right-sided sciatica (Primary Dx) 05/08/2024 Telephone [facility] [address], [place] [address] Ilia Contreras MD from Last 3 Months Immunizations Immunization Administration Dates Next Due Influenza, Quadrivalent, Kaylyn [...] Osteoporosis Osteopenia Chest pain Diverticulosis Adrenal insufficiency Fibromyalgia Chronic fatigue Chickenpox Shingles x4 Closed [...] Colon polyps Father Emile Heart disease Father Emile Hypertension Father Emile Kidney disease Father Emile Pancreatic cancer Father Emile neuro-endo crine tumor Prostate cancer Father Emile Arthritis Mother Marie COPD Mother Marie Heart disease Mother Marie Hypertension Mother Marie Memory loss Mother Marie Relation Name Status Comments Daughter Shanti Father Emile Mother Marie Social History Tobacco Use Types [...] staff should administer the PHQ-9) 0 09/20/2023 PHQ-9 Answer Date Recorded PHQ-9 Total Score 6 09/20/2023 Comments No Sex and Gender Information Value Date Recorded Sex Assigned at Not on file Legal Sex Female 5:59 AM CARDROOM PLASTIC CARD GRADER Gender Identity Not on file Sexual Orientation Not on file Obstetrics History Last Filed Vital Signs Vital Sign Reading Time Taken Comments Blood Pressure 156/77 07/03/2024 10:22 AM CARDROOM PLASTIC CARD GRADER Pulse 94 07/03/2024 10:22 AM CARDROOM PLASTIC CARD GRADER Temperature 36.9 C (98.4 F) 07/12/2022 1:06 PM CDT Respiratory Rate 18 09/20/2023 10:31 AM CDT Oxygen Saturation 96% 07/12/2022 1:06 PM CDT Inhaled Oxygen Concentration - - Weight 56.2 kg (124 lb) 07/03/2024 10:22 AM CARDROOM PLASTIC CARD GRADER Height 152.4 cm (5') 07/03/2024 10:22 AM CARDROOM PLASTIC CARD GRADER Body Mass Index 24.22 07/03/2024 10:22 AM CARDROOM PLASTIC CARD GRADER Plan of Treatment Health Maintenance Due Date Last Done Comments Breast Cancer Screening-Mammogram 1960 Covid-19 Vaccine ( season) 2023 05/26/2023, 04/09/2022, 02/28/2021, Additional history exists Influenza Vaccine (#1) 2023 , 02/27/2022, 02/28/2021, Additional history exists Colon Cancer [...] Procedure Name Priority Date/Time Associated Diagnosis Comments XR SPINE LUMBAR ROUTINE Schedule Routine, Read Routine (OP Routine) 07/03/2024 11:25 AM CARDROOM PLASTIC CARD GRADER Acute right-sided low back pain with right-sided sciatica XR TRANSFER OF OUTSIDE FILMS Routine 07/03/2024 10:54 AM CARDROOM PLASTIC CARD GRADER HEPATITIS C ANTIBODY Routine 01/11/2022 7:29 AM CDT Encounter for hepatitis C screening test for low risk patient COLONOSCOPY REPORT 02/04/2014 from Last 3 Months or Most Recently Relevant to Health Maintenance Results * XR Spine Lumbar 4 or More Views (07/03/2024 11:25 AM CARDROOM PLASTIC CARD GRADER) Anatomical Region Laterality Modality L-spine N/A Digital Radiogra phy 07/06/2024 9:08 PM CDT Narrative 07/06/2024 9:09 PM CDT EXAM DESCRIPTION: XR SPINE LUMBAR 4 OR MORE VIEWS REASON FOR STUDY: lower back pain Pt complains of lbp with sciatica x 1 month after falling. No prior surgery to spine TECHNIQUE: Frontal, lateral, bilateral oblique weight-bearing radiographic view(s) of the lumbar spine. COMPARISON: None available. FINDINGS: Suboptimal evaluation due to imaging technique with utilization of large field of views. 5 sxe-ddc-lxndzwr lumbar type vertebral bodies. There is rmtu-wn-wywovcyo levoconvex curvature. The lumbar vertebral body heights are maintained. Ikkl-vi-vjlrmnvb intervertebral disc height loss with endplate degenerative changes and marginal spur formation. Mid to lower lumbar predominant moderate facet arthropathy. There are vascular calcifications. Large amount of stool projects over the imaged abdomen and pelvis. Portions of the sacrum and coccyx are obscured by overlapping bowel debris. IMPRESSION: 1. The lumbar vertebral body heights are maintained. 2. Levoconvex curvature with ikmc-fs-aqsnwcfa lumbar disc degeneration and more advanced facet arthropathy. THIS IS AN ELECTRONICALLY VERIFIED FINAL REPORT 07/06/2024 9:09 PM - Electronically signed by Aman Persaud D.O. AP T: Report ID: [id number] Reading Location: [id number] Procedure Note Aman Persaud, DO - 07/06/2024 EXAM DESCRIPTION: XR SPINE LUMBAR 4 OR MORE VIEWS REASON FOR STUDY: lower back pain Pt complains of lbp with sciatica x 1 month after falling. No priorsurgery to spine TECHNIQUE: Frontal, lateral, bilateral oblique weight-bearingradiographic view(s) of the lumbar spine. COMPARISON: None available. FINDINGS: Suboptimal evaluation due to imaging technique with utilizationof large field of views. 5 fqt-uhw-vcjpqyx lumbar type vertebral bodies.There is rjyz-xs-papaipsu levoconvex curvature. The lumbar vertebral bodyheights are maintained. Llyi-gv-innxhtrt intervertebral disc height loss with endplate degenerative changes and marginal spur formation. Mid to lower lumbar predominant moderate facet arthropathy. There are vascular calcifications. Large amount of stool projects over the imaged abdomenand pelvis. Portions of the sacrum and coccyx are obscured by overlappingbowel debris. IMPRESSION: 1. The lumbar vertebral body heights are maintained. 2. Levoconvex curvature with dzeg-tj-kjtpysog lumbar disc degenerationand more advanced facet arthropathy. THIS IS AN ELECTRONICALLY VERIFIED FINAL REPORT 07/06/2024 9:09 PM - Electronically signed by Aman Persaud D.O. AP T: Report ID: [id number] Reading Location: [id number] Guerrero Schumacher DO IMG XR PROCEDURES Silke l Result * XR Outside Reference (07/03/2024 10:54 AM CARDROOM PLASTIC CARD GRADER) Impressions [facility] - 07/03/2024 10:54 AM CARDROOM PLASTIC CARD GRADER These images are for Reference purposes only and have not been reviewed by [facility]. There will be no report generated by a [facility]ologist. Narrative [facility] - 07/03/2024 10:54 AM CARDROOM PLASTIC CARD GRADER EXAMINATION: Images For Reference Purposes Only Guerrero Navin Winsome DO IMG XR PROCEDURES Silke l Result Performing Organization Address City/[facility] Co de Phone Number [facility] * Hepatitis C antibody (01/11/2022 7:29 AM CDT) Hep C Ab NON-REACTI VE NON-REACT LYNNETTE [facility] SIGNAL TO CUT-OFF 0.00 <1.00 [facility] Comment: HCV antibody was non-reactive. There is no laboratory evidence of HCV infection. In most cases, no further action is required. However, if recent HCV exposure is suspected, a test for HCV RNA (test code 79176) is suggested. For additional information please refer to http://education.[employer]/faq/JSJ84f6 (This link is being provided for informational/ educational purposes only.) Blood specimen (specimen) 01/11/2022 7:29 AM CDT 01/11/2022 7:29 AM CDT Narrative [facility] - 01/12/2022 9:29 AM CDT FASTING:YES FASTING: YES Janie Mackenzie MD LAB MICROBIOLOGY - GENERAL ORDERABLES Final Result Performing Organization Address City/[facility] Co de Phone Number [facility] [address] [place] [address] * COLONOSCOPY REPORT (02/04/2014) Anatomical Region Laterality Modality Other Narrative 02/04/2014 Ordered by an unspecified provider. Historical Provider GI PROCEDURE ORDERABLES F inal Result from Last 3 Months or Most Recently Relevant to Health Maintenance Insurance BLUE ACCESS [place] CHOICE [facility] PPO [place] Care Teams Photo Finish Photographer Relationship Specialty Start Date End Date No, Physician PCP - General 06/30/24 [place] [id number] [address] Referring Physician Endocrinology Diabetes & Metabolism 09/20/23
--- OUTSIDE RECORDS SUMMARY | 2024-07-26 09:19 | XMS_ITS | Continuity of Care Document ---
Author Organization [facility] Address [address] [place] [address] Phone Care Team Providers Care Air Brake Adjuster Name Role Phone Clarissa Johnson MD Unavailable Unavailabl e Allergies, Adverse Reactions, Alerts Substance Reaction Status Criticality prednisone Active No Information Medications Medication Instructions Dosage Effective Dates (start - stop) Status Comments ESTRACE 0.01% CREAM INSERT 1 APPLICATORFUL THREE TIMES WEEKLY 1 G - Active aspirin 81 mg tablet,delayed release take 1 tablet by mouth 4 times a week - Active Fish Oil Concentrate 1,000 mg capsule take 1 by Oral route every day 1 - Active Co Q-10 100 mg capsule take 1 capsule by mouth once daily - Active Vitamin D3 5,000 unit tablet take 1 tablet by mouth once daily - Active Multiple Vitamins tablet take 1 tablet by oral route every day with food - Active Synthroid 100 mcg tablet take 1 tablet by oral route every day 100 MCG - Active Estrace 0.01% (0.1 mg/gram) vaginal cream insert (1G) by vaginal route 2 times every week 1 G - No Longer Active Advance Directives Directive Yes / No Effective Date File Name No Information Encounters Encounter Description Practice Location Reason(s) For Visit Diagnoses Date Provider Providers Copied on Encounter [facility], [address], [place], [place], [id number] , tel: [phone] Jaida No Information [address] [place], [place], [id number]. tel:[phone] [facility], [address], [place], [place], [address] , tel: [phone] Jaida No Information 6 Alex [address] [place], [place], [address]. tel:[phone] [facility], [address], [place], [place], [address] , tel: [phone] [place] Encounter for preventive health examinationHypothyro idism, unspecifiedChronic fatigue, unspecifiedEncounter for immunization 6 Alex [address] [place], [place], [address]. tel:[phone] Referring Provider: Clarissa Johnson, [address] [place], [address] . tel:[phone] Family History Family Member Type Diagnosis Age [...] Insurance type Covered republican ID Authoriza tion(s) [facility] [id number] [facility] [id number] Social History Type Description Quantity Date Captured [...]
--- OUTSIDE RECORDS SUMMARY | 2024-07-26 09:19 | XMS_ITS | Clinical Summary ---
Author Organization [facility] Address [address] [facility] [place] [address] Phone Care Team Providers Care Cruise Staff Member Name Role Phone Unavailable Primary Care Provider Unavailabl e Social History Tobacco Use Types Packs/Day Years Used Date Smoking Tobacco: Never Assessed Comments Unknown Sex and Gender Information Value Date Recorded Sex Assigned at Not on file Legal Sex Female 3:50 PM CDT Gender Identity Not on file Sexual Orientation Not on file Plan of Treatment Upcoming Encounters Date Type Department Care Team (Late st Contact Info) Description 07/30/2024 12:00 PM CDT Ancillary Procedure [facility] [address] [place] [address] Guerrero Schumacher, DO [address] [facility] [address] Health Maintenance Due Date Last Done Comments HPV/Cotest (21-29) 1982 CERVICAL CANCER SCREENING 1991 HPV/Cotest (30-65) 1991 PAP SMEAR 1991 BREAST CANCER SCREENING 2001 FIT-DNA Q 3 years 2006 FIT/FOBT Q 1 year 2006 Flex Sig/CT Colonography Q 5 years 2006 INFLUENZA VACCINE (#1) 2023 4, 02/27/2022, 02/28/2021, Additional history exists COLORECTAL SCREENING 02/05/2024 02/04/2014 Colorectal Cancer Screening 02/05/2024 DTAP/TDAP/TD VACCINES (2 - T d or Tdap) 01/19/2027 01/19/2017 RSV VACCINE (60+ or ) (1 - 1-dose 75+ series) 02/20/2036 ZOSTER VACCINE Completed 10/19/2018, 06/15/2018 Insurance [facility] BLUE ACCESS CHOICE
--- OUTSIDE RECORDS SUMMARY | 2024-07-26 09:19 | XMS_ITS | Encounter Summary ---
Author Organization [facility] Address [facility] [place] [address] Care Team Providers Care Tomographic Tech Name Role Phone Nagi Asencio MD Primary Care Provider [phone] Nayan Feldmna MD Unavailable Cary Armijo MD Primary Care Provider [phone] Encounter Details Date Type Department Care Team (Late st Contact Info) Description 11/25/2018 Abstract [facility] at [address] [address] Rani Garcia MA Social History Tobacco Use Types Packs/Day Years Used Date Smoking Tobacco: Never Smokeless Tobacco: Never Alcohol Use Standard Drinks/Week Comments No 0 (1 standard drink = 0.6 oz pur e alcohol) Comments No Sex and Gender Information Value Date Recorded Sex Assigned at Not on file Legal Sex Female 7:29 PM LITIGATION LEGAL ASSISTANT Gender Identity Not on file Sexual Orientation [...] on filedocumented in this encounter Care Teams Tomographic Tech Relationship Specialty Start Date End Date Nagi Asencio MD [address] [place], [place] [id number] PCP - General FAMILY PRACTICE 08/01/18 01/20/19 Cary Armijo MD [address] [facility] [address] [place] [address] PCP - General FAMILY PRACTICE 01/21/19 Nayan Feldman MD [address] [facility] [place], [place] [id number] [place] Lamination Technician INTERVENTIONAL CARDIOLOGY 08/07/18 documented as of this encounter
--- OUTSIDE RECORDS SUMMARY | 2024-07-26 09:19 | XMS_ITS | Referral Summary ---
Author Organization [facility] [place] [facility] Address [address] [place] [address] Care Team Providers Care Healthcare Insurance Sales Agent Name Role Phone Erin Ovalles MD Unavailable [phone] No, Physician Primary Care Provider [phone] Encounters Date Type Department Care Team Description 07/24/2024 Telephone [facility] Medicine [address] [place] [address] [address], [place] [address] Guerrero Schumacher DO 07/24/2024 Orders Only [facility] Sports Medicine and Primary Care at [address] [place] [address] Guerrero cShumacher DO Acute right-sided low back pain with right-sided sciatica (Primary Dx) 07/22/2024 Orders Only [facility] Care at [address] [place] [address] Guerrero Schumacher DO Acute right-sided low back pain with right-sided sciatica (Primary Dx) 07/03/2024 11:20 AM HOSPICE/HOME HEALTH AIDE Ancillary Procedure [facility] at [address] [address] Acute right-sided low back pain with right-sided sciatica 07/03/2024 10:54 AM HOSPICE/HOME HEALTH AIDE - 07/03/2024 11:59 PM HOSPICE/HOME HEALTH AIDE Hospital Encounter [facility] [address] [place] [address] Discharge Disposition: Discharge to home or self care 07/03/2024 10:30 AM HOSPICE/HOME HEALTH AIDE Office Visit [facility] Primary Care at [address] [place] [address] Guerrero Schumacher DO Acute right-sided low back pain with right-sided sciatica (Primary Dx) 05/08/2024 Telephone [facility] [place] [facility] [address] [place] [address] Calvin Simpson, Ilia Simpson MD from Last 3 Months Allergies No known [...] 03/23/20 24 025 Active miscellaneous medical supply [facility] [place] Liothyronine slow release oral 11 mcg daily in am and 7.5 mcg daily at 12 pm Active hydrocortisone (CORTEF) 5 mg tabletIndications: Adrenal insufficiency Take 8 tablets (40 mg total) by mouth daily 720 tablet 3 05/08/19 026 Active predniSONE (DELTASONE) 10 mg tabletIndications: Acute right-sided low back pain with right-sided sciatica Take 6 tabs on days 1-2, 5 tabs days 3-4, 4 tabs days 5-6, 3 tabs days 7-8, 2 tabs days 9-10, 1 tab days 11-12 42 tablet 07/04/19 Active Active Problems Problem Noted Date Diagnosed Date Adrenal insufficiency 09/20/2023 Assessment & Plan (03/23/2024 9:15 AM HOSPICE/HOME HEALTH AIDE): Chronic, stable Patient hemodynamically stable Patient asymptomatic [...] current dose. She wishes to transition to [facility] Endocrinology so new referral was provided IGT (impaired glucose tolerance) 09/20/2023 Assessment & Plan (03/23/2024 9:15 AM HOSPICE/HOME HEALTH AIDE): Check hemoglobin A1c Assessment & Plan (09/20/2023 [...] skin cancer prevention and screening: referral to aircraft maintenance director Check labs Vaccinations UTD Acquired hypothyroidism 12/20/2015 Overview (08/02/2016): Hypothyroidism (acquired) Assessment & Plan (03/23/2024 9:14 AM HOSPICE/HOME HEALTH AIDE): Chronic, unknown status Patient currently on Synthroid [...] bone of left foot 10/16/2016 09/20/2023 Immunizations Immunization Administration Dates Next Due Influenza, [...] on file Legal Sex Female 5:59 AM HOSPICE/HOME HEALTH AIDE Gender Identity Not on file Sexual Orientation Not on file Last Filed Vital Signs Vital Sign Reading Time Taken Comments Blood Pressure 156/77 07/03/2024 10:22 AM HOSPICE/HOME HEALTH AIDE Pulse 94 07/03/2024 10:22 AM HOSPICE/HOME HEALTH AIDE Temperature 36.9 C (98.4 F) 07/12/2022 1:06 PM CDT Respiratory Rate 18 09/20/2023 10:31 AM CDT Oxygen Saturation 96% 07/12/2022 1:06 PM CDT Inhaled Oxygen Concentration - - Weight 56.2 kg (124 lb) 07/03/2024 10:22 AM HOSPICE/HOME HEALTH AIDE Height 152.4 cm (5') 07/03/2024 10:22 AM HOSPICE/HOME HEALTH AIDE Body Mass Index 24.22 07/03/2024 10:22 AM HOSPICE/HOME HEALTH AIDE Plan of Treatment Not on file Procedures Procedure Name Priority Date/Time Associated Diagnosis Comments XR SPINE LUMBAR ROUTINE Schedule Routine, Read Routine (OP Routine) 07/03/2024 11:25 AM HOSPICE/HOME HEALTH AIDE Acute right-sided low back pain with right-sided sciatica XR TRANSFER OF OUTSIDE FILMS Routine 07/03/2024 10:54 AM HOSPICE/HOME HEALTH AIDE HEPATITIS C ANTIBODY Routine 01/11/2022 7:29 AM CDT Encounter for hepatitis C screening test for low risk patient COLONOSCOPY REPORT 02/04/2014 from Last 3 Months or Most Recently Relevant to Health Maintenance Results * XR Spine Lumbar 4 or More Views (07/03/2024 11:25 AM HOSPICE/HOME HEALTH AIDE) Anatomical Region Laterality Modality L-spine N/A Digital [...] utilization of large field of views. 5 ykg-tyj-wvkcvhx lumbar type vertebral bodies. There is npiu-ak-etmlwljw levoconvex curvature. The lumbar vertebral body heights are maintained. Kikq-vd-vomwahkw intervertebral disc height loss with endplate degenerative changes and marginal spur formation. Mid to lower lumbar predominant moderate facet arthropathy. There are vascular calcifications. Large amount of stool projects over the imaged abdomen and pelvis. Portions of the sacrum and coccyx are obscured by overlapping bowel debris. IMPRESSION: 1. The lumbar vertebral body heights are maintained. 2. Levoconvex curvature with rzcj-gz-dkkywhbh lumbar disc degeneration and more advanced facet arthropathy. THIS IS AN ELECTRONICALLY VERIFIED FINAL REPORT 07/06/2024 9:09 PM - Electronically signed by Aman Persaud D.O. AP T: Report ID: [id number] Reading Location: [id number] Procedure Note Aman Persaud DO - 07/06/2024 EXAM DESCRIPTION: XR SPINE LUMBAR 4 OR MORE VIEWS REASON FOR STUDY: lower back pain Pt complains of lbp with sciatica x 1 month after falling. No priorsurgery to spine TECHNIQUE: Frontal, lateral, bilateral oblique weight-bearingradiographic view(s) of the lumbar spine. COMPARISON: None available. FINDINGS: Suboptimal evaluation due to imaging technique with utilizationof large field of views. 5 cuc-yvr-ehlfexg lumbar type vertebral bodies.There is zcfk-ii-udmybmbl levoconvex curvature. The lumbar vertebral bodyheights are maintained. Ebli-ji-kawnljrw intervertebral disc height loss with endplate degenerative changes and marginal spur formation. Mid to lower lumbar predominant moderate facet arthropathy. There are vascular calcifications. Large amount of stool projects over the imaged abdomenand pelvis. Portions of the sacrum and coccyx are obscured by overlappingbowel debris. IMPRESSION: 1. The lumbar vertebral body heights are maintained. 2. Levoconvex curvature with hkoo-so-ylrxusqg lumbar disc degenerationand more advanced facet arthropathy. THIS IS AN ELECTRONICALLY VERIFIED FINAL REPORT 07/06/2024 9:09 PM - Electronically signed by Aman JURADO T: Report ID: [id number] Reading Location: [id number] Guerrero Schumacher DO IMG XR PROCEDURES Silke l Result * XR Outside Reference (07/03/2024 10:54 AM HOSPICE/HOME HEALTH AIDE) Impressions RAD_PACS_[facility] - 07/03/2024 10:54 AM HOSPICE/HOME HEALTH AIDE These images are for Reference purposes only and have not been reviewed by [facility] Radiology. There will be no report generated by a [facility] Radiologist. Narrative RAD_PACS_[facility] - 07/03/2024 10:54 AM HOSPICE/HOME HEALTH AIDE EXAMINATION: Images For Reference Purposes Only Guerrero Schumacher DO IMG XR PROCEDURES Silke l Result Performing Organization Address City/[facility]/ZIP Co de Phone Number RAD_PACS_[facility] * Hepatitis [...] a test for HCV RNA (test code 03779) is suggested. For additional information please refer to http://education.[employer]/faq/YVO82i5 (This link is being provided for informational/ educational purposes only.) Blood specimen (specimen) 01/11/2022 7:29 AM CDT 01/11/2022 7:29 AM CDT Narrative [facility] - 01/12/2022 9:29 AM CDT FASTING:YES FASTING: YES Janie Mackenzie MD LAB MICROBIOLOGY - GENERAL ORDERABLES Final Result Performing Organization Address [facility] Co de Phone Number [employer] [address] [place] [address] * COLONOSCOPY REPORT (02/04/2014) Anatomical Region Laterality Modality Other Narrative 02/04/2014 Ordered by an unspecified provider. Historical Provider GI PROCEDURE ORDERABLES F inal Result from Last 3 Months or Most Recently Relevant to Health Maintenance Insurance [facility] [facility] [place] Care Teams Healthcare Insurance Sales Agent Relationship Specialty Start Date End Date No, Physician PCP - General 06/30/24 [place] [id number] [place] [address] Referring Physician Endocrinology Diabetes & Metabolism 09/20/23
--- OUTSIDE RECORDS SUMMARY | 2024-07-26 09:19 | XMS_ITS | Clinical Summary ---
Author Organization [facility] Address [address] [place] [address] Care Team Providers Care Brief Writer Name Role Phone Janie Mackenzie MD Primary Care Pro vider Source Comments [facility],non-owned Affiliates and Associated Physician Practices is amultiple site organization consisting of ambulatory clinics and hospital sitesin [place] and [place]. This disclosure is being madepursuant to the Care Everywhere program and may not contain all information available regarding this patient. Last updated 18.[facility] Allergies No known active allergies Medications * [...] in PM 90 Each 3 01/01/2023 Active Harcourt & Syringes MISC Use 1 Each as [...] Department Care Team Description 05/20/2024 Orders Only [facility] - Endocrinology [address] [place] [address], [address] [place] [address] Erin Ovalles MD Post-menopausal from [...] 2011 ZOSTER VACCINE (1 of 2) 2011 COVID-19 VACCINE (1 - season) 2023 INFLUENZA VACCINE (#1) 2023 9, 01/19/2017, 02/06/2016, Additional history exists DEPRESSION SCREENING 04/29/2024 MAMMOGRAM 05/19/2026 05/19/2024, 10/03/2021 SCREENING FOR DIABETES 08/18/2026 , 01/10/2023, 09/18/2022, Additional history exists LIPID TESTING 09/19/2027 09/18/2022 Respiratory Syncytial Virus (RSV) Vaccine Pt: or over 60 yrs (1 - 1-dose 75+ series) 02/20/2036 HEPATITIS B VACCINE Aged Out No longe r eligible based on patient's age to complete this topic HIB VACCINE Aged Out No longer eligi ble based on patient's age to complete this topic HPV VACCINE Aged Out No longer eligi ble based on patient's age to complete this topic MENINGOCOCCAL (Group B) VACCINE SHARED DECISION-MAKING Aged Out No longer eligible based on patient's age to complete this topic MENINGOCOCCAL GROUPS A/C/Y/W VACCINE Aged Out No longer eligible based [...] 29 U/L [facility] Comment: Test Performed at: [facility] [address] [place] [address] MICKI STEVENSON MD 08/19/2023 7:15 AM CDT 08/19/2023 7:17 AM CDT Erin Ovalles MD LAB - CHEMISTRY ORDERABLES [facility] [address] [place] [address] * (ABNORMAL) LIPID PROFILE (09/18/2022 7:47 AM [...] LDL-C. Aashish MUNSON et al. ROSSY. 2013;310(19): 1115-2712 (http://education.[employer]/faq/WGP128) CHOL/HDLC RATIO 3.2 <5.0 (calc) [facility] Non HDL Cholesterol 129 <130 mg/dL (calc) [facility] Comment: For patients with diabetes plus 1 major ASCVD risk factor, treating to a non-HDL-C goal of <100 mg/dL (LDL-C of <70 mg/dL) is considered a therapeutic option. Test Performed at: [facility] [address] [place] [address] MICKI STEVENSON MD 09/18/2022 7:47 AM CDT 09/18/2022 7:47 AM CDT Erin Ovalles MD LAB - CHEMISTRY ORDERABLES [facility] [address] [place] [address] from Last 3 Months or Most Recently Relevant to Health Maintenance Care Teams Brief Writer Relationship Specialty Start Date End Date Janie Mackenzie MD [address] [place] [address] PCP - General Family Medicine 01/24/22
--- OUTSIDE RECORDS SUMMARY | 2024-07-26 09:20 | XMS_ITS | Continuity of Care Document ---
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, [place], [id number]. tel:[phone] [facility], [address], [place], [place], [address] , tel: [phone] Jaida No Information 6 Alex [address], [place], [address]. tel:[phone] [facility], [address], [place], [place], [address] , tel: [phone] [facility] Encounter for preventive health examinationHypothyro idism, unspecifiedChronic fatigue, unspecifiedEncounter for immunization 6 Alex [address], [place], [address]. tel:[phone] Referring Provider: Clarissa Johnson, [address] [place], [address] . tel:[phone] Family History Family Member Type Diagnosis Age [...] Unspecified Payers Payer name Insurance type Covered democrat ID Authoriza tion(s) [facility] CI [id number] [facility] CI [id number] Social History Type Description Quantity Date Captured [...]
--- NOTE | 2024-07-26 09:21 | ED.GENADULT ---
HPI - General Adult General Chief complaint: Upper Respiratory Infection Stated complaint: Upper Resp Time Seen by Provider: 07/26/24 09:21 Source: patient Mode of arrival: ambulatory Limitations: no limitations History of Present Illness HPI narrative: 64-year-old female patient [facility] with complaints of cold symptoms for the past 10 days. Patient denies any fevers body aches or chills at any point in time. Patient states she did have a sore throat but that has since resolved. Patient states her only complaint today is that she has got a lot of congestion and continues to have a cough and runny nose. Patient states she has tried taking phgc-ibx-lvihonf Sudafed for her symptoms but denies any antihistamines or cough medication. Related Data Home Medications ?Medication ?Instructions ?Recorded ?Confirmed ?Last Taken ?Type hydrocortisone 5 mg tablet 5 mg PO DAILY 04/17/21 04/17/21 Unknown History levothyroxine 25 mcg tablet 25 mcg PO DAILY 04/17/21 04/17/21 Unknown History (Synthroid) liothyronine 5 mcg tablet mcg 08/23/23 Unknown History Allergies Allergy/AdvReac Type Severity Reaction Status Date / Time No Known Allergies Allergy Unknown Verified 07/26/24 09:23 Review of Systems Review of Systems: CONSTITUTIONAL: Denies fever, chills, or sweats. EYES: Denies visual changes, redness, or discharge. ENT: Positive rhinorrhea, congestion, denies current sore throat, positive left otalgia. CARDIOVASCULAR: Denies chest pain, palpitations, or edema. RESPIRATORY: positive cough , denies dyspnea. GASTROINTESTINAL: Denies abdominal pain, nausea, vomiting, or diarrhea. GENITOURINARY: Denies dysuria or hematuria. SKIN: Denies rash or itching. MUSCULOSKELETAL: Denies back pain, joint pain, or myalgia. NEUROLOGIC: Denies headache, numbness, or weakness. PSYCHIATRIC: Denies anxiety or depression. [facility] Past Medical History Medical History (Updated 07/26/24 @ 09:36 by CASSY Bird) Adrenal insufficiency Fibromyalgia Thyroid disease Family History Family History Mother Family history of hypercholesterolemia Family history of cardiac disorder Father Family history of hypercholesterolemia Hypertension Family history of cardiovascular disease Family history of chronic obstructive pulmonary disease Other Family history of Parkinson's disease Social History Social History Smoking status: Never smoker Alcohol intake: never Comments At the time of my signature I agree with nursing past medical history, surgical, social, and family history. There is no relevant family history pertinent to the presenting complaint. Exam Narrative: GENERAL: Well-appearing, well-nourished, and in no acute distress. HEAD: Normocephalic, atraumatic. EYES: PERRLA and EOMI. ENT: Nares with erythema edema noted bilaterally, no rhinorrhea or epistaxis. Mucous membranes moist. posterior pharynx with no erythema, tonsillar enlargement, exudates or lesions present. Bilateral TMs do appear to have fluid behind them but there is no erythema noted. NECK: Supple. No lymphadenopathy CHEST: Clear to auscultation. No respiratory distress. HEART: Regular rate and rhythm. No murmur heard. Normal peripheral pulses. ABDOMEN: Soft, nontender, nondistended, normal active bowel sounds. EXTREMITIES: Normal range of motion. No edema. SKIN: Warm, dry, no rash. NEURO: No focal deficits. Alert and oriented x3. Course Course Level of Care: Express Care Visit Vital Signs Vital signs: Vital Signs Temperature 36.5 C 07/26/24 09:23 Pulse Rate 99 07/26/24 09:23 Respiratory Rate 18 07/26/24 09:23 Blood Pressure 141/54 H 07/26/24 09:23 Pulse Oximetry 97 07/26/24 09:23 Oxygen Delivery Room Air 07/26/24 09:23 Temperature 36.5 C 07/26/24 09:23 Pulse Rate 99 07/26/24 09:23 Respiratory Rate 18 07/26/24 09:23 Blood Pressure 141/54 H 07/26/24 09:23 Pulse Oximetry 97 07/26/24 09:23 Oxygen Delivery Room Air 07/26/24 09:23 Vital signs reviewed The patient has been informed that they may have pre-hypertension or Hypertension based on a BP reading in the department. I recommend that the patient call the primary care provider listed on their discharge instructions or a physician of their choice this week to arrange follow up for further evaluation of possible pre-hypertension or Hypertension Medical Decision Making MDM Narrative Medical decision making narrative: Plan care for patient is discharge home with some oral steroids and Tessalon Perles to help with congestion and cough. Also recommend taking yzyo-gkz-zqvhecx antihistamines and Flonase to help with the fluid behind the ears. Discussed with patient if she continues have worsening symptoms or develops a fever she needs to come back in for further assessment or follow-up with her primary doctor. Differential Diagnosis Differential Diagnosis: differential diagnosis: Allergic rhinitis, chronic sinusitis, tonsillitis, acute sinusitis, infectious mononucleosis, seasonal influenza, pertussis, diphtheria, meningococcal disease, viral syndrome, viral bronchitis, RSV, COVID-19 Vital Signs Vital Signs: Vital Signs Temperature 36.5 C 07/26/24 09:23 Pulse Rate 99 07/26/24 09:23 Respiratory Rate 18 07/26/24 09:23 Blood Pressure 141/54 H 07/26/24 09:23 Pulse Oximetry 97 07/26/24 09:23 Oxygen Delivery Room Air 07/26/24 09:23 Temperature 36.5 C 07/26/24 09:23 Pulse Rate 99 07/26/24 09:23 Respiratory Rate 18 07/26/24 09:23 Blood Pressure 141/54 H 07/26/24 09:23 Pulse Oximetry 97 07/26/24 09:23 Oxygen Delivery Room Air 07/26/24 09:23 Critical Care Time Critical Care Time Critical Care Time: No Discharge Plan Discharge Clinical Impression: Viral URI with cough Patient Disposition: Home, Self-Care Condition: Stable Instructions: Antibiotic Form, Viral Syndrome (ED) Additional Instructions: Viral illness may last between 7-12days; antibiotic is NOT recommended at this time. Recommend antihistamine such as Benadryl at night time and Claritin/Zyrtec/Kim during the day and an ggpe-gih-kcqwebr Flonase to help decrease the fluid behind the ears. Cough syrup may cause drowsiness; avoid driving or take it at night time. Take cough medication as prescribed to help with coughing. Take oral steroids in the morning with food. Also, recommend symptomatic treatment includes: rest, fluids, and increase humidity of the air at home. Recommend Acetaminophen or nonsteroidal anti-inflammatory agents (NSAIDs) as directed in the bottle to reduce fever and/pain/headache. Avoid smoking/second-hand smoke. Limit visits to areas with large crowds. Please schedule a follow-up visit with your personal physician for further evaluation and treatment within 3-5days. Including recheck and discussion of your blood pressure. If your symptoms persist, change or worsen significantly before you can contact your personal physician then please, without delay, go to the emergency department for further evaluation. Patient Language: Sammarinese Prescriptions: New benzonatate 200 mg capsule 200 mg PO TID PRN (Reason: cough) 10 Days Qty: 30 0RF prednisone 20 mg tablet 20 mg PO DAILY 5 Days Qty: 5 0RF No Action liothyronine 5 mcg tablet hydrocortisone 5 mg tablet 5 mg PO DAILY levothyroxine [Synthroid] 25 mcg tablet 25 mcg PO DAILY Follow-up/Referrals: UNKNOWN,DOCTOR [Primary Care Provider] - Time of Disposition: 09:34
[2024-07-26 09:23] VITALS: BP 141/54; PULSE 99; RESP 18; TEMP 36.5; O2SAT 97
== END 2024-07-26 09:37 | disposition home or self-care (01) ==
PROVIDERS: Emergency Provider Nurse Practitioner Family
DX: J06.9 Acute upper respiratory infection, unspecified (principal); R05.9 Cough, unspecified; M79.7 Fibromyalgia; E07.9 Disorder of thyroid, unspecified
CPT/HCPCS: 99213; G0463